=== PATIENT | male | born 1980 | race Hispanic/Latino ===

== ENCOUNTER 2017-05-21 14:13 | Observation (INO) | payer MEDICARE ==
[~2017-05-21] VITALS: Ht 182.9 cm; Wt 85.6 kg
[2017-05-21 15:34] LABS: BASOPHILS % (AUTO) 0.2 % (0.0-5.0); LYMPHOCYTES % (AUTO) 6.3 % (21.0-51.0); MEAN CORPUSCULAR HGB CONC 33.7 g/dL (32.0-36.0); MEAN CORPUSCULAR VOLUME 91.8 fL (79-99); MONOCYTES % (AUTO) 7.5 % (3.0-13.0); PLATELET COUNT (AUTO) 358 K/uL (130-400); RED BLOOD CELL COUNT(AUTO) 4.69 MIL/uL (4.50-6.20); RED CELL DISTRIBUTION WIDTH 13.4 % (11.0-15.5)
[2017-05-21 15:37] LABS: BILIRUBIN,URINE Negative (NEGATIVE); COLOR,URINE Dark Yellow (YELLOW); GLUCOSE, URINE (UA) Negative (NEGATIVE); KETONES,URINE Negative (NEGATIVE); LEUKOCYTE ESTERASE ,URINE Large (NEGATIVE); NITRATE,URINE Positive (NEGATIVE); OCCULT BLOOD,URINE Moderate (NEGATIVE); PROTEIN,URINE POS 1+ (NEGATIVE)
[2017-05-21 15:38] LABS: APPEARANCE,URINE CLOUDY (CLEAR)
[2017-05-21 15:45] LABS: AMPHET/METH SCREEN,URINE NEGATIVE (NEGATIVE); BARBITURATE SCREEN, URINE NEGATIVE (NEGATIVE); BENZODIAZEPINES SCREEN,URINE POSITIVE (NEGATIVE); CANNABINOID SCREEN,URINE POSITIVE (NEGATIVE); COCAINE SCREEN,URINE NEGATIVE (NEGATIVE); OPIATE SCREEN,URINE NEGATIVE (NEGATIVE); PHENCYCLIDINE SCREEN,URINE NEGATIVE (NEGATIVE)
[2017-05-21 15:48] LABS: CREATININE 0.9 mg/dL (0.5-1.5); POTASSIUM 3.7 mmol/L (3.5-5.1)
[2017-05-21 15:53] LABS: ALBUMIN 3.8 g/dL (3.5-5.0); BILIRUBIN,TOTAL 1.1 mg/dL (0.2-1.0); TOTAL PROTEIN, SERUM 8.2 g/dL (6.0-8.3)
[2017-05-21 16:48] LABS: BACTERIA,URINE Few /HPF (None Seen)
[2017-05-21 16:49] LABS: SQUAMOUS EPITHELIAL CELL,UR Rare /LPF (0-2); WBC,URINE 51-100 /HPF (0-1)
[2017-05-21] MEDS ORDERED: ACETAMINOPHEN 325 MG TAB ONE (17:05)
[2017-05-21] MEDS ORDERED: CEFTRIAXONE SODIUM 1 GM ONE (17:07)
[2017-05-22 07:14] LABS: BASOPHILS % (AUTO) 0.4 % (0.0-5.0); EOSINOPHILS % (AUTO) 0.1 % (0.0-8.0); HEMATOCRIT 37.9 % (42-54); LYMPHOCYTES % (AUTO) 7.9 % (21.0-51.0); MEAN CORPUSCULAR HEMOGLOBIN 31.8 pg (27.0-33.0); MEAN CORPUSCULAR HGB CONC 34.8 g/dL (32.0-36.0); MEAN CORPUSCULAR VOLUME 91.4 fL (79-99); MONOCYTES % (AUTO) 8.9 % (3.0-13.0); NEUTROPHILS % (AUTO) 82.7 % (40.0-77.0); PLATELET COUNT (AUTO) 329 K/uL (130-400); RED BLOOD CELL COUNT(AUTO) 4.15 MIL/uL (4.50-6.20); RED CELL DISTRIBUTION WIDTH 13.7 % (11.0-15.5); WHITE BLOOD COUNT (AUTO) 12.6 K/uL (4.8-10.8)
[2017-05-22 07:26] LABS: CREATININE 0.8 mg/dL (0.5-1.5); POTASSIUM 3.6 mmol/L (3.5-5.1)
[2017-05-22] MEDS ORDERED: ALPR2TAB7 PO (07:47)
[2017-05-22] MEDS ORDERED: AMIT25TA9 PO (07:49)
[2017-05-22] MEDS ORDERED: LISI-613 PO (07:51)
[2017-05-22] MEDS ORDERED: OXYB15TA PO (07:53)
[2017-05-22] MEDS ORDERED: CEFTRIAXONE SODIUM 1 GM IVP SCH (09:00)
[2017-05-22] MEDS: SODIUM CHLORIDE 0.9% 1000ML 1,000 ML IV SCH ×2 (09:15→18:11)
[2017-05-22] MEDS ORDERED: MAG HYDROX/AL HYDROX/SIMETH ES 30 ML SUSP UDCUP ONE (11:56)
[2017-05-22 12:50] VITALS: BP 106/68
[2017-05-22 16:00] VITALS: BP 130/52
[2017-05-22] MEDS: CEFTRIAXONE SODIUM 1 GM IVP SCH (18:11)
[2017-05-22 20:00] VITALS: BP 116/75
[2017-05-22] MEDS ORDERED: MAG HYDROX/AL HYDROX/SIMETH ES 30 ML SUSP UDCUP PO PRN (20:00)
[2017-05-22] MEDS: OXYBUTYNIN 5 MG TAB.SR.24H PO SCH (20:35)
[2017-05-22] MEDS ORDERED: ALPRAZOLAM 1 MG TAB PO SCH (21:00)
[2017-05-22] MEDS ORDERED: AMITRIPTYLINE HCL 25 MG TABLET PO SCH (21:00)
[2017-05-22 23:53] VITALS: BP 100/58
[2017-05-23 04:00] VITALS: BP 111/75
[2017-05-23 04:14] LABS: CREATININE 0.9 mg/dL (0.5-1.5)
[2017-05-23 04:20] LABS: HEMATOCRIT 36.3 % (42-54); MEAN CORPUSCULAR HEMOGLOBIN 31.6 pg (27.0-33.0); MEAN CORPUSCULAR HGB CONC 34.4 g/dL (32.0-36.0); MEAN CORPUSCULAR VOLUME 91.9 fL (79-99); PLATELET COUNT (AUTO) 288 K/uL (130-400); RED BLOOD CELL COUNT(AUTO) 3.95 MIL/uL (4.50-6.20); RED CELL DISTRIBUTION WIDTH 13.7 % (11.0-15.5); WHITE BLOOD COUNT (AUTO) 6.6 K/uL (4.8-10.8)
[2017-05-23 04:40] LABS: BAND NEUTROPHILS % (MANUAL) 7 % (0-2); LYMPHOCYTES % (MANUAL) 20 % (22-44); MAN.DIFF COMMENT-IMPRESSION MANUAL DIFFERENTIAL; MONOCYTES % (MANUAL) 4 % (2-9); PLATELET MORPHOLOGY COMMENT ADEQUATE; SEGMENTED NEUTROPHILS % 69 % (40-70)
[2017-05-23] MEDS: SODIUM CHLORIDE 0.9% 1000ML 1,000 ML IV SCH (05:24)
[2017-05-23 08:00] VITALS: BP 101/59
[2017-05-23] MEDS ORDERED: LISINOPRIL 20 MG TABLET PO SCH (09:00)
[2017-05-23] MEDS ORDERED: CEPH500B PO (09:35)
[2017-05-23] MEDS: OXYBUTYNIN 5 MG TAB.SR.24H PO SCH (10:14)
[2017-05-23] MEDS: CEFTRIAXONE SODIUM 1 GM IVP SCH (10:15)
[2017-05-23 11:57] VITALS: BP 123/74
== END 2017-05-23 11:45 | disposition home or self-care (01) ==
LOC: EDH 14:13 → EDHIP 17:20 → 3BH 05-22 12:31
PROVIDERS: ADMIT Internal Medicine Nephrology; ATTEND Internal Medicine Nephrology
DX: E11.69 Type 2 diabetes mellitus with other specified complication (principal); N12 Tubulo-interstitial nephritis, not specified as acute or chronic; N31.9 Neuromuscular dysfunction of bladder, unspecified; G82.20 Paraplegia, unspecified; I10 Essential (primary) hypertension; N13.30 Unspecified hydronephrosis; F41.9 Anxiety disorder, unspecified; Z91.19 Patient's noncompliance with other medical treatment and regimen; Z82.49 Family history of ischemic heart disease and other diseases of the circulatory system
CPT/HCPCS: 36415 ×3; 74176; 76770; 80048 ×2; 80053; 80305; 81001; 83605; 85025 ×3; 87040; 87088; 87186; 87804 ×2; 96361 ×2; 96374; 96376; 99285; A4218; G0378 ×42; J0696 ×3; J7030

== ENCOUNTER 2017-05-24 08:10 | Emergency (ER) | payer MEDICARE ==
[~2017-05-24 08:10] MED LIST: ALPR2TAB7 PO; AMIT25TA9 PO; CEPH500B PO; LISI-613 PO; OXYB15TA PO
[2017-05-24] MEDS ORDERED: KETOROLAC TROMETHAMINE 30MG/ML ONE (08:54)
[2017-05-24 09:12] LABS: BASOPHILS % (AUTO) 0.3 % (0.0-5.0); EOSINOPHILS % (AUTO) 1.9 % (0.0-8.0); HEMATOCRIT 39.8 % (42-54); LYMPHOCYTES % (AUTO) 10.9 % (21.0-51.0); MEAN CORPUSCULAR HEMOGLOBIN 31.2 pg (27.0-33.0); MEAN CORPUSCULAR HGB CONC 34.6 g/dL (32.0-36.0); MEAN CORPUSCULAR VOLUME 90.3 fL (79-99); MONOCYTES % (AUTO) 9.6 % (3.0-13.0); NEUTROPHILS % (AUTO) 77.3 % (40.0-77.0); NUCLEATED RED BLOOD CELLS 0.1 % (0.0-0.19); PLATELET COUNT (AUTO) 296 K/uL (130-400); WHITE BLOOD COUNT (AUTO) 9.5 K/uL (4.8-10.8)
[2017-05-24] MEDS ORDERED: ONDANSETRON ODT 4 MG TAB ONE (09:15)
[2017-05-24 09:19] LABS: CREATININE 0.7 mg/dL (0.5-1.5); POTASSIUM 3.5 mmol/L (3.5-5.1)
[2017-05-24 09:24] LABS: ALBUMIN 2.7 g/dL (3.5-5.0); BILIRUBIN,TOTAL 0.4 mg/dL (0.2-1.0)
[2017-05-24 09:25] LABS: APPEARANCE,URINE Cloudy (CLEAR); BILIRUBIN,URINE Negative (NEGATIVE); COLOR,URINE Yellow (YELLOW); GLUCOSE, URINE (UA) Negative (NEGATIVE); KETONES,URINE Negative (NEGATIVE); LEUKOCYTE ESTERASE ,URINE Large (NEGATIVE); NITRATE,URINE Negative (NEGATIVE); OCCULT BLOOD,URINE Small (NEGATIVE); PH,URINE 6.5 (5.0-8.0); PROTEIN,URINE Negative (NEGATIVE); UROBILINOGEN,URINE 0.2 mg/dL (0.2-1.0)
[2017-05-24 09:59] LABS: RBC,URINE 0-1 /HPF (0-1); WBC,URINE TNTC /HPF (0-1)
[2017-05-24 10:00] LABS: BACTERIA,URINE Few /HPF (None Seen); SQUAMOUS EPITHELIAL CELL,UR Few /LPF (0-2)
[2017-05-24] MEDS ORDERED: LEVOFLOXACIN 500 MG TABLET ONE (10:39)
== END 2017-05-24 11:18 | disposition home or self-care (01) ==
LOC: EDH 08:10
DX: N10 Acute pyelonephritis (principal); E11.9 Type 2 diabetes mellitus without complications; I10 Essential (primary) hypertension
CPT/HCPCS: 36415; 80053; 81001; 82150; 83690; 85025; 87088; 87186; 96374; 99284; J1885

== ENCOUNTER 2022-03-23 11:27 | Emergency (ER) | payer MEDICARE ==
[~2022-03-23 11:27] MED LIST changes: -LISI-613 PO; +LISI20TA24 PO; -OXYB15TA PO; +OXYB15TA19 PO
[2022-03-23] MEDS ORDERED: LACTATED RINGERS 1000ML 1,000 ML IV ONE (12:00)
[2022-03-23 12:22] LABS: BASOPHILS % (AUTO) 0.3 % (0.0-5.0); EOSINOPHILS % (AUTO) 0.5 % (0.0-8.0); HEMATOCRIT 43.7 % (42-54); LYMPHOCYTES % (AUTO) 18.1 % (21.0-51.0); MEAN CORPUSCULAR HEMOGLOBIN 26.8 pg (27.0-33.0); MEAN CORPUSCULAR HGB CONC 31.6 g/dL (32.0-36.0); MEAN CORPUSCULAR VOLUME 84.9 fL (79-99); MONOCYTES % (AUTO) 5.6 % (3.0-13.0); NEUTROPHILS % (AUTO) 74.7 % (40.0-77.0); PLATELET COUNT (AUTO) 407 K/uL (130-400); RED BLOOD CELL COUNT(AUTO) 5.15 MIL/uL (4.50-6.20); RED CELL DISTRIBUTION WIDTH 14.6 % (11.0-15.5); WHITE BLOOD COUNT (AUTO) 7.9 K/uL (4.8-10.8)
[2022-03-23 12:33] LABS: CREATININE 0.8 mg/dL (0.5-1.5); POTASSIUM 3.7 mmol/L (3.5-5.1)
[2022-03-23 12:37] LABS: ALBUMIN 3.3 g/dL (3.5-5.0); TOTAL PROTEIN, SERUM 8.1 g/dL (6.0-8.3)
[2022-03-23 13:09] LABS: APPEARANCE,URINE CLOUDY (CLEAR); BILIRUBIN,URINE NEGATIVE (NEGATIVE); COLOR,URINE LIGHT-YELLOW (YELLOW); GLUCOSE, URINE (UA) NEGATIVE (NEGATIVE); KETONES,URINE NEGATIVE (NEGATIVE); LEUKOCYTE ESTERASE ,URINE 500 Leu/uL (NEGATIVE); NITRATE,URINE NEGATIVE (NEGATIVE); PH,URINE 6.5 (5.0-8.0); PROTEIN,URINE NEGATIVE (NEGATIVE); UROBILINOGEN,URINE 0.2 mg/dL (0.2-1.0)
[2022-03-23 13:15] LABS: BACTERIA,URINE FEW /HPF (None Seen); MUCUS,URINE RARE LPF (None Seen); OTHER CASTS, URINE 2 /LPF (None Seen); SQUAMOUS EPITHELIAL CELL,UR RARE /HPF (0-2); WBC,URINE TNTC /HPF (0-1); YEAST,URINE BUDDING RARE /HPF (None Seen)
[2022-03-23] MEDS ORDERED: LORAZEPAM 2 MG/ML 1 ML VIAL IVP ONE (14:00)
[2022-03-23] MEDS ORDERED: CEFTRIAXONE 1G VIAL IVP ONE (16:30)
[2022-03-23] MEDS ORDERED: CEFU500T67 PO (16:59)
[2022-03-23] MEDS ORDERED: LORA-192 PO (16:59)
[2022-03-23 17:01] VITALS: BP 120/78
== END 2022-03-23 17:09 | disposition home or self-care (01) ==
LOC: EDH 11:27
DX: A09 Infectious gastroenteritis and colitis, unspecified (principal); E86.0 Dehydration; F41.9 Anxiety disorder, unspecified; N39.0 Urinary tract infection, site not specified; Z79.899 Other long term (current) drug therapy; Z88.1 Allergy status to other antibiotic agents
CPT/HCPCS: 99285; 96374; 96375; 80053; 85025; 87077; 87088; 87186; 81001; 36415; J7120; J0696; J2060

== ENCOUNTER 2022-11-17 02:34 | Emergency (ER) | payer OTHER, MEDICARE ==
[~2022-11-17] VITALS: Ht 182.9 cm; Wt 86.2 kg
[~2022-11-17 02:34] MED LIST changes: +CEFU500T67 PO; +LORA-192 PO
[2022-11-17] MEDS ORDERED: 0.9%NACL 1000ML 1,551 ML IV ONE (03:00)
[2022-11-17 03:19] LABS: BASOPHILS # (AUTO) 0.04 K/uL (0.00-0.20); BASOPHILS % (AUTO) 0.4 % (0.0-5.0); EOSINOPHILS # (AUTO) 0.13 K/uL (0.00-0.70); EOSINOPHILS % (AUTO) 1.2 % (0.0-8.0); HEMATOCRIT 45.7 % (42-54); IMMATURE GRANULOCYTE ABSOLUTE 0.06 K/uL (0-1); LYMPHOCYTES # (AUTO) 1.2 K/uL (1.0-4.8); LYMPHOCYTES % (AUTO) 10.4 % (21.0-51.0); MEAN CORPUSCULAR HEMOGLOBIN 28.6 pg (27.0-33.0); MEAN CORPUSCULAR HGB CONC 32.4 g/dL (32.0-36.0); MEAN CORPUSCULAR VOLUME 88.2 fL (79-99); MONOCYTES # (AUTO) 0.7 K/uL (0.1-1.0); NEUTROPHILS # (AUTO) 9.2 K/uL (1.8-7.7); NEUTROPHILS % (AUTO) 81.5 % (40.0-77.0); PLATELET COUNT (AUTO) 277 K/uL (130-400); RED BLOOD CELL COUNT(AUTO) 5.18 MIL/uL (4.50-6.20); RED CELL DISTRIBUTION WIDTH 13.4 % (11.0-15.5); WHITE BLOOD COUNT (AUTO) 11.2 K/uL (4.8-10.8)
[2022-11-17 03:20] LABS: BILIRUBIN,URINE NEGATIVE (NEGATIVE); COLOR,URINE YELLOW (YELLOW); GLUCOSE, URINE (UA) NEGATIVE (NEGATIVE); KETONES,URINE NEGATIVE (NEGATIVE); LEUKOCYTE ESTERASE ,URINE LARGE Leu/uL (NEGATIVE); NITRATE,URINE NEGATIVE (NEGATIVE); OCCULT BLOOD,URINE MODERATE (NEGATIVE); PH,URINE 7.5 (5.0-8.0); PROTEIN,URINE 30 mg/dL (NEGATIVE); UROBILINOGEN,URINE 0.2 mg/dL (0.2-1.0)
[2022-11-17] MEDS ORDERED: CEFTRIAXONE 1G VIAL ONE (03:23)
[2022-11-17 03:24] LABS: ADD UA MICROSCOPIC YES; APPEARANCE,URINE CLOUDY (CLEAR)
[2022-11-17 03:27] LABS: WBC,URINE 51-100 /HPF (0-1)
[2022-11-17 03:28] LABS: BACTERIA,URINE Many /HPF (None Seen)
[2022-11-17 03:29] LABS: SQUAMOUS EPITHELIAL CELL,UR Rare /HPF (0-2)
[2022-11-17] MEDS ORDERED: CEFTRIAXONE 1G VIAL IVPB ONE (03:30)
[2022-11-17 03:31] LABS: ALBUMIN 3.1 g/dL (3.5-5.0); BILIRUBIN,TOTAL 0.6 mg/dL (0.2-1.0); CREATININE 0.8 mg/dL (0.5-1.5); TOTAL PROTEIN, SERUM 7.9 g/dL (6.0-8.3)
[2022-11-17 03:33] LABS: POTASSIUM 2.8 mmol/L (3.5-5.1)
[2022-11-17] MEDS ORDERED: CEFU500T67 PO (04:44)
[2022-11-17] MEDS ORDERED: POTASSIUM BICARB/CIT AC 25 MEQ TABLET.EFF PO ONE (05:00)
[2022-11-17] MEDS ORDERED: POTASSIUM CHLORIDE 10MEQ/100ML 100 ML IV SCH (05:00)
[2022-11-17 05:17] VITALS: BP 115/77; PULSE 100; RESP 18; O2SAT 99
== END 2022-11-17 05:33 | disposition home or self-care (01) ==
LOC: EDH 02:34
DX: L89.152 Pressure ulcer of sacral region, stage 2 (principal); N39.0 Urinary tract infection, site not specified; E86.0 Dehydration; E87.6 Hypokalemia; I10 Essential (primary) hypertension; E78.00 Pure hypercholesterolemia, unspecified; Z79.899 Other long term (current) drug therapy; Z88.1 Allergy status to other antibiotic agents
CPT/HCPCS: 99283; 96374; 80053; 85025; 87040 ×2; 87077; 87088; 87186; 83605; 81001; 36415; J0696

== ENCOUNTER 2022-11-27 18:58 | Inpatient (IN) | payer OTHER, MEDICARE ==
[~2022-11-27] VITALS: Ht 182.9 cm; Wt 87.1 kg
[~2022-11-27 18:58] MED LIST changes: -CEPH500B PO
[2022-11-27] MEDS ORDERED: ACETAMINOPHEN 325 MG TAB ONE (19:30)
[2022-11-27] MEDS ORDERED: ACETAMINOPHEN 325 MG TAB PO ONE (19:30)
[2022-11-27 20:15] LABS: BASOPHILS # (AUTO) 0.03 K/uL (0.00-0.20); BASOPHILS % (AUTO) 0.3 % (0.0-5.0); EOSINOPHILS # (AUTO) 0.09 K/uL (0.00-0.70); EOSINOPHILS % (AUTO) 0.8 % (0.0-8.0); HEMATOCRIT 43.4 % (42-54); LYMPHOCYTES # (AUTO) 1.4 K/uL (1.0-4.8); LYMPHOCYTES % (AUTO) 11.3 % (21.0-51.0); MEAN CORPUSCULAR HEMOGLOBIN 28.5 pg (27.0-33.0); MEAN CORPUSCULAR HGB CONC 32.7 g/dL (32.0-36.0); MONOCYTES # (AUTO) 0.7 K/uL (0.1-1.0); NEUTROPHILS # (AUTO) 9.7 K/uL (1.8-7.7); NEUTROPHILS % (AUTO) 80.8 % (40.0-77.0); PLATELET COUNT (AUTO) 357 K/uL (130-400); RED BLOOD CELL COUNT(AUTO) 4.99 MIL/uL (4.50-6.20); RED CELL DISTRIBUTION WIDTH 13.3 % (11.0-15.5)
[2022-11-27] MEDS: 0.9%NACL 1000ML 1,000 ML IV SCH (20:15)
[2022-11-27 20:26] LABS: BILIRUBIN,URINE NEGATIVE (NEGATIVE); COLOR,URINE LIGHT-ORANGE (YELLOW); GLUCOSE, URINE (UA) NEGATIVE (NEGATIVE); KETONES,URINE NEGATIVE (NEGATIVE); LEUKOCYTE ESTERASE ,URINE 500 Leu/uL (NEGATIVE); NITRATE,URINE NEGATIVE (NEGATIVE); OCCULT BLOOD,URINE MODERATE (NEGATIVE); PH,URINE 7.5 (5.0-8.0); PROTEIN,URINE 30 mg/dL (NEGATIVE); UROBILINOGEN,URINE 0.2 mg/dL (0.2-1.0)
[2022-11-27 20:28] LABS: APPEARANCE,URINE CLOUDY (CLEAR)
[2022-11-27 20:29] LABS: ADD UA MICROSCOPIC YES
[2022-11-27 20:34] LABS: CREATININE 0.8 mg/dL (0.5-1.5); POTASSIUM 3.3 mmol/L (3.5-5.1)
[2022-11-27 20:35] LABS: BACTERIA,URINE FEW /HPF (None Seen); MUCUS,URINE RARE LPF (None Seen); SQUAMOUS EPITHELIAL CELL,UR RARE /HPF (0-2); WBC CLUMP MANY /HPF (0-1); WBC,URINE TNTC /HPF (0-1)
[2022-11-27 20:39] LABS: INFLUENZA TYPE A Negative For Type A (NEGATIVE); INFLUENZA TYPE B Negative For Type B (NEGATIVE); SARS-CoV-2, RNA, NAAT NEGATIVE SARS CoV-2 (NEGATIVE)
[2022-11-27 20:43] LABS: ALBUMIN 2.9 g/dL (3.5-5.0); BILIRUBIN,TOTAL 0.5 mg/dL (0.2-1.0); MAGNESIUM 1.9 mg/dL (1.80-2.40); TOTAL PROTEIN, SERUM 7.9 g/dL (6.0-8.3)
[2022-11-27 21:22] VITALS: TEMP 99.2
[2022-11-27] MEDS ORDERED: ZOSYN 3.375GM +NS 50ML IVPB ONE (22:00)
[2022-11-27] MEDS ORDERED: MORPHINE 4 MG SYG IVP ONE (22:30)
[2022-11-27] MEDS ORDERED: ONDANSETRON 4MG INJ IVP PRN (22:30)
[2022-11-28] VITALS (9 sets, daily range): BP systolic 98–135; BP diastolic 58–78; PULSE 74–98; RESP 16–18; O2SAT 97–98
[2022-11-28] MEDS ORDERED: POTASSIUM BICARB/CIT AC 25 MEQ TABLET.EFF PO ONE (00:30)
[2022-11-28] MEDS ORDERED: COMPOUND IV MISC 1 EACH IVSOLN MISC PRN (08:00)
[2022-11-28] MEDS: MEROPENEM 1 GM in 0.9%NACL 100ML 100 ML IV SCH ×3 (08:30→21:16)
[2022-11-28] MEDS ORDERED: ENOXAPARIN SODIUM 60 MG/0.6 ML SQ ONE (09:00)
[2022-11-28] MEDS ORDERED: ENOXAPARIN SODIUM 40 MG/0.4 ML SYRINGE SQ ONE (10:30)
[2022-11-28] MEDS ORDERED: HONEY 1 APPL/ML TUBE TP SCH (17:00)
[2022-11-28] MEDS: 0.9%NACL 1000ML 1,000 ML IV SCH (21:17)
[2022-11-28] MEDS: MORPHINE 2 MG SYG IVP PRN (21:24)
[2022-11-28 22:44] LABS: BASOPHILS # (AUTO) 0.04 K/uL (0.00-0.20); BASOPHILS % (AUTO) 0.5 % (0.0-5.0); EOSINOPHILS # (AUTO) 0.24 K/uL (0.00-0.70); EOSINOPHILS % (AUTO) 2.9 % (0.0-8.0); HEMATOCRIT 39.7 % (42-54); IMMATURE GRANULOCYTE ABSOLUTE 0.04 K/uL (0-1); LYMPHOCYTES # (AUTO) 1.7 K/uL (1.0-4.8); LYMPHOCYTES % (AUTO) 20.5 % (21.0-51.0); MEAN CORPUSCULAR HEMOGLOBIN 28.5 pg (27.0-33.0); MEAN CORPUSCULAR HGB CONC 31.5 g/dL (32.0-36.0); MEAN CORPUSCULAR VOLUME 90.4 fL (79-99); MONOCYTES # (AUTO) 0.7 K/uL (0.1-1.0); MONOCYTES % (AUTO) 8.7 % (3.0-13.0); NEUTROPHILS # (AUTO) 5.6 K/uL (1.8-7.7); NEUTROPHILS % (AUTO) 66.9 % (40.0-77.0); PLATELET COUNT (AUTO) 309 K/uL (130-400); RED BLOOD CELL COUNT(AUTO) 4.39 MIL/uL (4.50-6.20); RED CELL DISTRIBUTION WIDTH 13.1 % (11.0-15.5); WHITE BLOOD COUNT (AUTO) 8.4 K/uL (4.8-10.8)
[2022-11-28 22:59] LABS: MAGNESIUM 1.8 mg/dL (1.80-2.40); PHOSPHORUS 3.6 mg/dL (2.5-4.9); POTASSIUM 3.3 mmol/L (3.5-5.1)
[2022-11-29] VITALS (7 sets, daily range): BP systolic 113–141; BP diastolic 70–79; PULSE 59–78; RESP 15–18; O2SAT 97–99
[2022-11-29] MEDS: MEROPENEM 1 GM in 0.9%NACL 100ML 100 ML IV SCH ×3 (04:14→19:50)
[2022-11-29 05:15] LABS: HEMATOCRIT 38.4 % (42-54); MEAN CORPUSCULAR HEMOGLOBIN 28.7 pg (27.0-33.0); MEAN CORPUSCULAR VOLUME 89.5 fL (79-99); RED BLOOD CELL COUNT(AUTO) 4.29 MIL/uL (4.50-6.20); RED CELL DISTRIBUTION WIDTH 13.2 % (11.0-15.5); WHITE BLOOD COUNT (AUTO) 8.7 K/uL (4.8-10.8)
[2022-11-29 05:19] LABS: CREATININE 0.9 mg/dL (0.5-1.5); MAGNESIUM 1.8 mg/dL (1.80-2.40); POTASSIUM 3.4 mmol/L (3.5-5.1)
[2022-11-29] MEDS ORDERED: MAGNESIUM 4GM PREMIX 100ML 100 ML IV ONE (10:00)
[2022-11-29] MEDS: HONEY 1 APPL/ML TUBE TP SCH (12:31)
[2022-11-29] MEDS: ACETAMINOPHEN 325 MG TAB PO PRN (14:53)
[2022-11-29] MEDS: ALPRAZOLAM 0.5 MG TABLET PO SCH (19:50)
[2022-11-29] MEDS ORDERED: POTASSIUM CHLORIDE 10% ELIXIR 20 MEQ/15 ML UDCUP PO PRN (21:30)
[2022-11-29] MEDS ORDERED: POTASSIUM CHLORIDE 20MEQ/100ML 100 ML IV PRN (21:30)
[2022-11-29] MEDS ORDERED: MAGNESIUM 2GM PREMIX 50ML 50 ML IV PRN (21:30)
[2022-11-29] MEDS: KCL 20 MEQ ERTAB PO PRN (23:17)
[2022-11-30] MEDS: MORPHINE 2 MG SYG IVP PRN ×2 (00:59→21:18)
[2022-11-30] MEDS: KCL 20 MEQ ERTAB PO PRN (00:59)
[2022-11-30 04:00] VITALS: BP 110/70; PULSE 76; RESP 15
[2022-11-30] MEDS: MEROPENEM 1 GM in 0.9%NACL 100ML 100 ML IV SCH ×3 (04:43→21:00)
[2022-11-30 06:31] LABS: MAGNESIUM 2.3 mg/dL (1.80-2.40); POTASSIUM 3.8 mmol/L (3.5-5.1)
[2022-11-30 08:00] VITALS: BP 129/82; PULSE 76; RESP 18; O2SAT 99
[2022-11-30] MEDS: ALPRAZOLAM 0.5 MG TABLET PO SCH ×2 (09:40→21:10)
[2022-11-30] MEDS: HONEY 1 APPL/ML TUBE TP SCH (09:41)
[2022-11-30 12:00] VITALS: BP 122/76; PULSE 74; RESP 20
[2022-11-30 16:00] VITALS: BP 131/82; PULSE 69; RESP 19
[2022-11-30] MEDS: ACETAMINOPHEN 325 MG TAB PO PRN (16:36)
[2022-11-30 16:56] LABS: INR 0.96 (0.85-1.15); PROTHROMBIN TIME 11.2 SEC (9.6-11.6)
[2022-11-30 16:57] LABS: PARTIAL THROMBOPLASTIN TIME 27.2 SEC (26.3-35.5)
[2022-11-30 20:00] VITALS: BP 138/86; PULSE 66; RESP 19
[2022-11-30 20:18] VITALS: O2SAT 97
[2022-12-01] VITALS (8 sets, daily range): BP systolic 98–128; BP diastolic 68–87; PULSE 69–86; RESP 17–19; O2SAT 97
[2022-12-01] MEDS: MEROPENEM 1 GM in 0.9%NACL 100ML 100 ML IV SCH ×3 (04:06→20:45)
[2022-12-01] MEDS: HONEY 1 APPL/ML TUBE TP SCH (09:20)
[2022-12-01] MEDS: ALPRAZOLAM 0.5 MG TABLET PO SCH ×2 (09:20→20:44)
[2022-12-01] MEDS: MORPHINE 2 MG SYG IVP PRN ×2 (13:04→21:52)
[2022-12-02] VITALS: BP 109/61; PULSE 68; RESP 18
[2022-12-02 04:00] VITALS: BP 123/85; PULSE 81; RESP 21
[2022-12-02] MEDS: MEROPENEM 1 GM in 0.9%NACL 100ML 100 ML IV SCH ×2 (04:37→13:03)
[2022-12-02 05:08] LABS: HEMATOCRIT 42.4 % (42-54); MEAN CORPUSCULAR HEMOGLOBIN 28.2 pg (27.0-33.0); MEAN CORPUSCULAR HGB CONC 32.1 g/dL (32.0-36.0); RED BLOOD CELL COUNT(AUTO) 4.82 MIL/uL (4.50-6.20); RED CELL DISTRIBUTION WIDTH 12.9 % (11.0-15.5); WHITE BLOOD COUNT (AUTO) 6.2 K/uL (4.8-10.8)
[2022-12-02 05:24] LABS: CREATININE 0.7 mg/dL (0.5-1.5); PHOSPHORUS 4.4 mg/dL (2.5-4.9); POTASSIUM 3.7 mmol/L (3.5-5.1)
[2022-12-02] MEDS: KCL 20 MEQ ERTAB PO PRN ×2 (06:08→13:04)
[2022-12-02 08:00] VITALS: BP 127/78; PULSE 88; RESP 18; O2SAT 97
[2022-12-02] MEDS: ALPRAZOLAM 0.5 MG TABLET PO SCH (10:14)
[2022-12-02] MEDS: HONEY 1 APPL/ML TUBE TP SCH (10:14)
[2022-12-02 11:34] VITALS: BP 126/89; PULSE 63; RESP 18
[2022-12-02 16:00] VITALS: BP 120/78; PULSE 65; RESP 19
== END 2022-12-02 19:50 | DRG 871 ==
LOC: EDH 18:58 → EDHIP 22:24 → 3CH 23:05
PROVIDERS: ADMIT Internal Medicine Infectious Disease; ATTEND Internal Medicine Infectious Disease
PROC: 02HV33Z Insertion of Infusion Device into Superior Vena Cava, Percutaneous Approach (ICD-10-PCS; principal; 2022-12-01)
DX: A41.51 Sepsis due to Escherichia coli [E. coli] (principal); G82.50 Quadriplegia, unspecified; L89.153 Pressure ulcer of sacral region, stage 3; N39.0 Urinary tract infection, site not specified; Z16.12 Extended spectrum beta lactamase (ESBL) resistance; Z16.24 Resistance to multiple antibiotics; Z20.822 Contact with and (suspected) exposure to COVID-19; E87.6 Hypokalemia; N31.9 Neuromuscular dysfunction of bladder, unspecified; E78.5 Hyperlipidemia, unspecified; I10 Essential (primary) hypertension; Z87.440 Personal history of urinary (tract) infections
CPT/HCPCS: 36415; 71045; 80048; 80053; 81001; 82948; 83605; 83735; 84100; 84132; 84484; 85025; 85027; 85610; 85730; 87040; 87077; 87088; 87186; 87635; 87804; 93005; 97039; C1894; C9803; G0378; J1650; J2185; J2270; J2543; J3475

== ENCOUNTER 2023-08-12 18:18 | Emergency (ER) | payer OTHER, MEDICARE ==
[~2023-08-12] VITALS: Ht 182.9 cm; Wt 90.7 kg
[~2023-08-12 18:18] MED LIST changes: +ALPR1TAB7 PO; -ALPR2TAB7 PO; -CEFU500T67 PO; -LORA-192 PO
[2023-08-12 19:01] LABS: BASOPHILS # (AUTO) 0.02 K/uL (0.00-0.20); BASOPHILS % (AUTO) 0.2 % (0.0-5.0); EOSINOPHILS # (AUTO) 0.05 K/uL (0.00-0.70); EOSINOPHILS % (AUTO) 0.6 % (0.0-8.0); HEMATOCRIT 44.9 % (42-54); IMMATURE GRANULOCYTE ABSOLUTE 0.02 K/uL (0-1); LYMPHOCYTES # (AUTO) 1.5 K/uL (1.0-4.8); LYMPHOCYTES % (AUTO) 17.9 % (21.0-51.0); MEAN CORPUSCULAR HEMOGLOBIN 27.3 pg (27.0-33.0); MEAN CORPUSCULAR HGB CONC 32.5 g/dL (32.0-36.0); MEAN CORPUSCULAR VOLUME 84.1 fL (79-99); MONOCYTES # (AUTO) 0.7 K/uL (0.1-1.0); MONOCYTES % (AUTO) 8.6 % (3.0-13.0); NEUTROPHILS # (AUTO) 6.2 K/uL (1.8-7.7); NEUTROPHILS % (AUTO) 72.5 % (40.0-77.0); PLATELET COUNT (AUTO) 317 K/uL (130-400); RED BLOOD CELL COUNT(AUTO) 5.34 MIL/uL (4.50-6.20); WHITE BLOOD COUNT (AUTO) 8.5 K/uL (4.8-10.8)
[2023-08-12 19:15] LABS: ALBUMIN 3.2 g/dL (3.5-5.0); BILIRUBIN,TOTAL 0.5 mg/dL (0.2-1.0); CREATININE 0.8 mg/dL (0.5-1.3); TOTAL PROTEIN, SERUM 7.9 g/dL (6.0-8.3)
[2023-08-12] MEDS: 0.9%NACL 1000ML 1,000 ML IV STA (19:47)
[2023-08-12] MEDS: ONDANSETRON 4MG INJ IVP STA (19:49)
[2023-08-12] MEDS ORDERED: HYDR-3422 PO (21:01)
[2023-08-12] MEDS: POTASSIUM BICARB/CIT AC 25 MEQ TABLET.EFF PO STA (21:12)
[2023-08-12 22:58] VITALS: BP 124/88; PULSE 90; RESP 18; O2SAT 98
== END 2023-08-12 23:36 | disposition home or self-care (01) ==
LOC: EDH 18:18
DX: K52.9 Noninfective gastroenteritis and colitis, unspecified (principal); R11.2 Nausea with vomiting, unspecified; I10 Essential (primary) hypertension
CPT/HCPCS: 99283; 96374; 96361; 80053; 85025; 87070; 87077 ×4; 87186 ×4; 83605; 36415; J7030; J2405

== ENCOUNTER 2023-12-13 19:29 | Emergency (ER) | payer OTHER, MEDICARE ==
[~2023-12-13 19:29] MED LIST changes: +HYDR-3422 PO
[2023-12-13 19:50] LABS: BASOPHILS # (AUTO) 0.03 K/uL (0.00-0.20); BASOPHILS % (AUTO) 0.2 % (0.0-5.0); EOSINOPHILS # (AUTO) 0.05 K/uL (0.00-0.70); EOSINOPHILS % (AUTO) 0.3 % (0.0-8.0); HEMATOCRIT 44.2 % (42-54); IMMATURE GRANULOCYTE ABSOLUTE 0.08 K/uL (0-1); LYMPHOCYTES # (AUTO) 1.4 K/uL (1.0-4.8); LYMPHOCYTES % (AUTO) 9.7 % (21.0-51.0); MEAN CORPUSCULAR HEMOGLOBIN 28.1 pg (27.0-33.0); MEAN CORPUSCULAR HGB CONC 32.4 g/dL (32.0-36.0); MEAN CORPUSCULAR VOLUME 86.8 fL (79-99); MONOCYTES # (AUTO) 1.1 K/uL (0.1-1.0); MONOCYTES % (AUTO) 7.4 % (3.0-13.0); NEUTROPHILS # (AUTO) 11.8 K/uL (1.8-7.7); NEUTROPHILS % (AUTO) 81.8 % (40.0-77.0); PLATELET COUNT (AUTO) 300 K/uL (130-400); RED BLOOD CELL COUNT(AUTO) 5.09 MIL/uL (4.50-6.20); RED CELL DISTRIBUTION WIDTH 14.1 % (11.0-15.5); WHITE BLOOD COUNT (AUTO) 14.5 K/uL (4.8-10.8)
[2023-12-13 19:56] LABS: CREATININE 0.9 mg/dL (0.5-1.3); POTASSIUM 3.4 mmol/L (3.5-5.1)
[2023-12-13] MEDS: 0.9%NACL 1000ML 1,000 ML IV ONE (21:08)
[2023-12-13] MEDS: ketOROlac 15MG/ML VIAL (15MG/ML) IV ONE (21:36)
[2023-12-13 22:07] LABS: APPEARANCE,URINE TURBID (CLEAR); BILIRUBIN,URINE NEGATIVE (NEGATIVE); COLOR,URINE LIGHT-ORANGE (YELLOW); GLUCOSE, URINE (UA) NEGATIVE (NEGATIVE); KETONES,URINE NEGATIVE (NEGATIVE); LEUKOCYTE ESTERASE ,URINE 500 Leu/uL (NEGATIVE); NITRATE,URINE NEGATIVE (NEGATIVE); OCCULT BLOOD,URINE MODERATE (NEGATIVE); PROTEIN,URINE 300 mg/dL (NEGATIVE); UROBILINOGEN,URINE 0.2 mg/dL (0.2-1.0)
[2023-12-13 22:11] LABS: BACTERIA,URINE RARE /HPF (None Seen); NON-SQUAMOUS EPITHELIAL CELL 1 /HPF (0-2); OTHER CASTS, URINE 3 /LPF (None Seen); RBC,URINE 51-100 /HPF (0-1); UNCLASSIFIED CRYSTAL 6 /HPF (None Seen); WBC CLUMP FEW /HPF (0-1); WBC,URINE 51-100 /HPF (0-1); YEAST,URINE BUDDING FEW /HPF (None Seen)
[2023-12-13] MEDS ORDERED: LEVO750T68 PO (22:22)
[2023-12-13] MEDS: levoFLOXacin 500 MG/D5W 100 ML 100 ML IV SCH (22:47)
[2023-12-14 01:30] VITALS: BP 137/79; PULSE 84; RESP 18; TEMP 98.2; O2SAT 99
== END 2023-12-14 01:39 | disposition home or self-care (01) ==
LOC: EDH 19:29
DX: N39.0 Urinary tract infection, site not specified (principal); N32.0 Bladder-neck obstruction; G82.20 Paraplegia, unspecified; I10 Essential (primary) hypertension; Z79.899 Other long term (current) drug therapy; Z88.1 Allergy status to other antibiotic agents; Z98.890 Other specified postprocedural states
CPT/HCPCS: 99284; 96365; 96361; 96366; 96375; 80048; 85025; 87086 ×2; 87186; 81001; 36415; 51702; J1956; J7030; J1885

== ENCOUNTER 2023-12-16 14:07 | Emergency (ER) | payer OTHER, MEDICARE ==
[~2023-12-16] VITALS: Ht 182.9 cm; Wt 93.0 kg
[~2023-12-16 14:07] MED LIST changes: +LEVO750T68 PO
[2023-12-16 14:45] LABS: BILIRUBIN,URINE NEGATIVE (NEGATIVE); COLOR,URINE LIGHT-YELLOW (YELLOW); GLUCOSE, URINE (UA) NEGATIVE (NEGATIVE); KETONES,URINE NEGATIVE (NEGATIVE); LEUKOCYTE ESTERASE ,URINE 500 Leu/uL (NEGATIVE); NITRATE,URINE NEGATIVE (NEGATIVE); OCCULT BLOOD,URINE LARGE (NEGATIVE); PH,URINE 6.5 (5.0-8.0); PROTEIN,URINE 20 mg/dL (NEGATIVE); UROBILINOGEN,URINE 0.2 mg/dL (0.2-1.0)
[2023-12-16 14:46] LABS: ADD UA MICROSCOPIC YES; APPEARANCE,URINE HAZY (CLEAR)
[2023-12-16 14:50] LABS: BACTERIA,URINE FEW /HPF (None Seen); MUCUS,URINE RARE LPF (None Seen); RBC,URINE TNTC /HPF (0-1); SQUAMOUS EPITHELIAL CELL,UR RARE /HPF (0-2); WBC,URINE TNTC /HPF (0-1)
[2023-12-16 14:51] LABS: BASOPHILS # (AUTO) 0.01 K/uL (0.00-0.20); BASOPHILS % (AUTO) 0.2 % (0.0-5.0); EOSINOPHILS # (AUTO) 0.33 K/uL (0.00-0.70); EOSINOPHILS % (AUTO) 5.1 % (0.0-8.0); HEMATOCRIT 40.4 % (42-54); IMMATURE GRANULOCYTE ABSOLUTE 0.02 K/uL (0-1); LYMPHOCYTES # (AUTO) 1.5 K/uL (1.0-4.8); LYMPHOCYTES % (AUTO) 23.8 % (21.0-51.0); MEAN CORPUSCULAR HEMOGLOBIN 28.3 pg (27.0-33.0); MEAN CORPUSCULAR HGB CONC 32.4 g/dL (32.0-36.0); MEAN CORPUSCULAR VOLUME 87.3 fL (79-99); MONOCYTES # (AUTO) 0.5 K/uL (0.1-1.0); MONOCYTES % (AUTO) 7.9 % (3.0-13.0); NEUTROPHILS % (AUTO) 62.7 % (40.0-77.0); PLATELET COUNT (AUTO) 350 K/uL (130-400); RED BLOOD CELL COUNT(AUTO) 4.63 MIL/uL (4.50-6.20); RED CELL DISTRIBUTION WIDTH 13.8 % (11.0-15.5); WHITE BLOOD COUNT (AUTO) 6.4 K/uL (4.8-10.8)
[2023-12-16 15:09] LABS: ALBUMIN 2.5 g/dL (3.5-5.0); BILIRUBIN,TOTAL 0.3 mg/dL (0.2-1.0); CREATININE 0.9 mg/dL (0.5-1.3); TOTAL PROTEIN, SERUM 7.3 g/dL (6.0-8.3)
[2023-12-16] MEDS: 0.9%NACL 1000ML 1,000 ML IV SCH (15:59)
[2023-12-16] MEDS: PoTASSium BIcarbonate/CIT AC 25 MEQ TABLET.EFF PO ONE (16:15)
[2023-12-16 22:49] VITALS: BP 136/76; PULSE 75; RESP 18; TEMP 98.3; O2SAT 98
== END 2023-12-16 22:50 | disposition home or self-care (01) ==
LOC: EDH 14:07
DX: N39.0 Urinary tract infection, site not specified (principal); E87.6 Hypokalemia; F41.9 Anxiety disorder, unspecified; I10 Essential (primary) hypertension; Z79.899 Other long term (current) drug therapy; Z88.1 Allergy status to other antibiotic agents
CPT/HCPCS: 36415; 80053; 81001; 85025

== ENCOUNTER 2024-01-10 09:44 | Emergency (ER) | payer OTHER, MEDICARE ==
[~2024-01-10] VITALS: Ht 182.9 cm; Wt 77.1 kg
[2024-01-10] MEDS: acetaMINOPHEN 500 MG TABLET PO ONE (10:28)
[2024-01-10 11:27] VITALS: TEMP 98.4
[2024-01-10 12:12] LABS: APPEARANCE,URINE CLOUDY (CLEAR); BILIRUBIN,URINE NEGATIVE (NEGATIVE); COLOR,URINE LIGHT-YELLOW (YELLOW); GLUCOSE, URINE (UA) NEGATIVE (NEGATIVE); KETONES,URINE NEGATIVE (NEGATIVE); LEUKOCYTE ESTERASE ,URINE 500 Leu/uL (NEGATIVE); NITRATE,URINE 1+ (NEGATIVE); OCCULT BLOOD,URINE SMALL (NEGATIVE); PH,URINE 6.5 (5.0-8.0); PROTEIN,URINE NEGATIVE (NEGATIVE); UROBILINOGEN,URINE 0.2 mg/dL (0.2-1.0)
[2024-01-10 12:25] VITALS: BP 136/81; PULSE 70; RESP 18; TEMP 97.6; O2SAT 100
[2024-01-10 12:29] LABS: BACTERIA,URINE RARE /HPF (None Seen); SQUAMOUS EPITHELIAL CELL,UR RARE /HPF (0-2); WBC CLUMP MOD /HPF (0-1); WBC,URINE TNTC /HPF (0-1)
[2024-01-10] MEDS ORDERED: FOSF3PAC4 PO (12:38)
== END 2024-01-10 14:22 | disposition home or self-care (01) ==
LOC: EDH 09:44
DX: T83.098A Other mechanical complication of other urinary catheter, initial encounter (principal); N39.0 Urinary tract infection, site not specified; F32.A Depression, unspecified; G82.20 Paraplegia, unspecified; I10 Essential (primary) hypertension; Z79.899 Other long term (current) drug therapy; Z88.1 Allergy status to other antibiotic agents; Z98.890 Other specified postprocedural states; Y84.6 Urinary catheterization as the cause of abnormal reaction of the patient, or of later complication, without mention of misadventure at the time of the procedure
CPT/HCPCS: 51702; 81001; 87086; 87186

== ENCOUNTER 2024-01-12 05:21 | Emergency (ER) | payer OTHER, MEDICARE ==
[~2024-01-12] VITALS: Ht 182.9 cm; Wt 97.5 kg
[~2024-01-12 05:21] MED LIST changes: +FOSF3PAC4 PO
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
--- NOTE | 2024-01-12 06:41 | NUR ---
EMS CALLED FOR TRANSPORT.
[2024-01-12 06:57] VITALS: BP 140/78; PULSE 78; RESP 18; TEMP 98.2; O2SAT 98
== END 2024-01-12 09:06 | disposition home or self-care (01) ==
LOC: EDH 05:21
DX: T25.53 Corrosion of first degree of toe(s) (nail) (principal); F32.A Depression, unspecified; I10 Essential (primary) hypertension; Z79.899 Other long term (current) drug therapy; Z88.1 Allergy status to other antibiotic agents; Y93.89 Activity, other specified; Y92.89 Other specified places as the place of occurrence of the external cause; Y99.8 Other external cause status
CPT/HCPCS: 99281

== ENCOUNTER 2024-01-20 00:46 | Inpatient (IN) | payer OTHER, MEDICARE ==
[~2024-01-20] VITALS: Ht 182.9 cm; Wt 90.7 kg
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
[2024-01-20 01:21] LABS: BASOPHILS # (AUTO) 0.02 K/uL (0.00-0.20); BASOPHILS % (AUTO) 0.2 % (0.0-5.0); EOSINOPHILS # (AUTO) 0.13 K/uL (0.00-0.70); EOSINOPHILS % (AUTO) 1.2 % (0.0-8.0); HEMATOCRIT 41.1 % (42-54); IMMATURE GRANULOCYTE ABSOLUTE 0.04 K/uL (0-1); LYMPHOCYTES # (AUTO) 1.3 K/uL (1.0-4.8); LYMPHOCYTES % (AUTO) 12.2 % (21.0-51.0); MEAN CORPUSCULAR HEMOGLOBIN 28.4 pg (27.0-33.0); MEAN CORPUSCULAR HGB CONC 32.8 g/dL (32.0-36.0); MEAN CORPUSCULAR VOLUME 86.5 fL (79-99); MONOCYTES # (AUTO) 0.5 K/uL (0.1-1.0); MONOCYTES % (AUTO) 4.5 % (3.0-13.0); NEUTROPHILS # (AUTO) 8.5 K/uL (1.8-7.7); NEUTROPHILS % (AUTO) 81.5 % (40.0-77.0); PLATELET COUNT (AUTO) 272 K/uL (130-400); RED BLOOD CELL COUNT(AUTO) 4.75 MIL/uL (4.50-6.20); RED CELL DISTRIBUTION WIDTH 13.6 % (11.0-15.5); WHITE BLOOD COUNT (AUTO) 10.5 K/uL (4.8-10.8)
[2024-01-20 01:24] LABS: CREATININE 0.7 mg/dL (0.5-1.3)
[2024-01-20 01:26] LABS: POTASSIUM 2.9 mmol/L (3.5-5.1)
[2024-01-20] MEDS: HYDROcodone/APAP 5/325 1 TAB TABLET PO ONE (01:33)
[2024-01-20] MEDS: PoTASSium BIcarbonate/CIT AC 25 MEQ TABLET.EFF PO ONE (01:33)
[2024-01-20] MEDS: ketOROlac 15MG/ML VIAL (15MG/ML) IV ONE (01:33)
[2024-01-20 02:30] LABS: ERYTHROCYTE SEDIMENTATION RATE 25 MM/HR (0-15)
[2024-01-20] MEDS ORDERED: ondanSETRON 4MG INJ IVP PRN (02:30)
[2024-01-20] MEDS ORDERED: acetaMINOPHEN 325 MG TAB PO PRN (02:30)
[2024-01-20] MEDS ORDERED: VANCOMYCIN 1G/250ML KIT 250 ML IV SCH ×2 (02:30→10:30)
[2024-01-20] MEDS ORDERED: VANCOMYCIN 2GM/500 ML BAG 500 ML IV ONE (02:30)
[2024-01-20] MEDS ORDERED: VANCOMYCIN PROTOCOL PER PHARMACY IV SCH (02:30)
[2024-01-20] MEDS: ZOSYN 3.375GM +NS 50ML IV SCH (02:41)
[2024-01-20] MEDS: CLINDAMYCIN IVPB 900MG/50ML IV ONE (02:41)
--- NOTE | 2024-01-20 04:01 | NUR ---
PATIENT SLEEPING, NO DISTRESS NOTED.
--- NOTE | 2024-01-20 04:13 | NUR ---
NURSE BUSY FOR REPORT AT THIS TIME.
[2024-01-20 05:20] VITALS: BP 126/86; PULSE 73; RESP 20; TEMP 98.8; O2SAT 96
[2024-01-20 07:19] LABS: CREATININE 0.8 mg/dL (0.5-1.3); POTASSIUM 3.8 mmol/L (3.5-5.1)
[2024-01-20 07:20] LABS: BASOPHILS # (AUTO) 0.03 K/uL (0.00-0.20); BASOPHILS % (AUTO) 0.3 % (0.0-5.0); EOSINOPHILS # (AUTO) 0.31 K/uL (0.00-0.70); EOSINOPHILS % (AUTO) 3.6 % (0.0-8.0); HEMATOCRIT 38.9 % (42-54); IMMATURE GRANULOCYTE ABSOLUTE 0.04 K/uL (0-1); LYMPHOCYTES # (AUTO) 2.3 K/uL (1.0-4.8); LYMPHOCYTES % (AUTO) 26.1 % (21.0-51.0); MEAN CORPUSCULAR HGB CONC 31.9 g/dL (32.0-36.0); MEAN CORPUSCULAR VOLUME 87.8 fL (79-99); MONOCYTES # (AUTO) 0.7 K/uL (0.1-1.0); MONOCYTES % (AUTO) 8.1 % (3.0-13.0); NEUTROPHILS # (AUTO) 5.3 K/uL (1.8-7.7); NEUTROPHILS % (AUTO) 61.4 % (40.0-77.0); PLATELET COUNT (AUTO) 268 K/uL (130-400); RED BLOOD CELL COUNT(AUTO) 4.43 MIL/uL (4.50-6.20); RED CELL DISTRIBUTION WIDTH 13.8 % (11.0-15.5); WHITE BLOOD COUNT (AUTO) 8.6 K/uL (4.8-10.8)
[2024-01-20 07:42] LABS: MAGNESIUM 1.7 mg/dL (1.80-2.40)
[2024-01-20 08:00] VITALS: BP 117/70; PULSE 81; RESP 18; TEMP 97.7; O2SAT 96
[2024-01-20] MEDS: ENOXAPARIN SODIUM 30 MG/0.3 ML SQ SCH (08:55)
[2024-01-20 12:00] VITALS: BP 131/81; PULSE 80; RESP 18; TEMP 98
[2024-01-20 16:00] VITALS: BP 123/74; PULSE 81; RESP 18; TEMP 98.1
--- NOTE | 2024-01-20 18:49 | NUR ---
INITIAL/DCP-HOME Met w pt this evening to discuss dcp. PT admitted w sacral ulcer/hyperkalemia. EC mother Roxy White [phone]. Pt mentions that he lives w his mother. He is wc bound however can transfer himself independently. He completes ADLs w setup. Pt receives approx 29hrs/week of provider services from [facility] and 3hrs daily of respite. His mother is able to provide transportation where needed. Discharge goal is to return home. However pt mentions that he has been to [facility] and [facility] before and would be open to these options if Md recommends. Addendum: 01/20/24 at 1853 by SADIE MAHMOOD CM Amended: Links added.
[2024-01-20 20:00] VITALS: BP 153/86; PULSE 73; RESP 18; TEMP 98.4
[2024-01-20 20:30] VITALS: O2SAT 97
[2024-01-20] MEDS: ALPRAZolam 1 MG TAB PO SCH (21:00)
[2024-01-20] MEDS: AMITRIPTYLINE 25 MG TABLET PO SCH (21:01)
[2024-01-21] VITALS (8 sets, daily range): BP systolic 107–167; BP diastolic 59–91; PULSE 65–98; RESP 16–18; TEMP 98.1–98.8; O2SAT 98–100
--- NOTE | 2024-01-21 04:26 | HP ---
DATE OF SERVICE: 01/20/2024. HISTORY AND PHYSICAL PRESENTING COMPLAINT: Lower back pain and ulcer. HISTORY OF PRESENT ILLNESS: This is a 43-year-old male with history of hypertension, neurogenic bladder, and spinal cord injury, presented to the hospital with a wound to the sacrococcygeal area. The patient has history of chronic wound to the sacrococcygeal area. Claims, he probably slipped on a metal object without knowing. Subsequently, noticed worsening of wound to the sacral area. No fever or chills. Complaining of generalized weakness. In the Emergency Room, the patient was found with potassium of 2.9. No chest pain, no palpitation or orthopnea. The patient has a chronic sacrococcygeal ulcer. He claims he has not been following up with any doctor. PAST MEDICAL HISTORY: * Hypertension. * Dyslipidemia. * Neurogenic bladder. * Paraplegia of lower extremities. * Obesity. * Urinary tract infection. * Sacrococcygeal ulcer. PAST SURGICAL HISTORY: * Spinal cord surgery. * Back surgery. ALLERGIES: VANCOMYCIN. HOME MEDICATIONS: Reviewed. SOCIAL HISTORY: Lives alone. No alcohol, tobacco or illicit drug use. FAMILY HISTORY: Noncontributory. REVIEW OF SYSTEMS: Greater than 10 systems were reviewed, negative except as documented above. PHYSICAL EXAMINATION: GENERAL: Young male. VITAL SIGNS: Temperature 98.8, pulse 73, respiratory rate 20, and BP 126/86. EYES: No icterus. Pupils equal and reactive. HENT: No oral thrush seen. Moist oral mucosa. NECK: Supple, no JVD or thyromegaly. LUNGS: Good air entry. No rales, no rhonchi. CARDIOVASCULAR: S1, S2 regular. No murmur heard. ABDOMEN: Obese, soft, and nontender. Bowel sounds are present. CENTRAL NERVOUS SYSTEM: Awake, alert and oriented x 3, bedbound, and paraplegia of lower extremity. SKIN: No rashes, no itchiness. LYMPHATIC: No peripheral lymphadenopathy. BACK: Stage II ulcer in the sacrococcygeal area. HEMATOLOGIC: No bleeding or petechial lesions seen. LABORATORY DATA: Sodium 140, potassium 3.8, BUN 10, and creatinine 0.8. WBC 8.7, hemoglobin 12.4, and platelet 260. ASSESSMENT: A 43-year-old male presenting with weakness and sacral wound. CURRENT PROBLEMS: Include: * Stage II sacrococcygeal ulcer. * Hypertension. * Hypokalemia. * Paraplegia of lower extremity. * Neurogenic bladder. * Obesity. PLAN: * The patient will be admitted to medical floor. * Electrolyte will be corrected. * Start the patient on vancomycin. * Start the patient on Zosyn. * Wound Care consult. * Lovenox for DVT prophylaxis. * Tylenol as needed for pain or fever. * Zofran as needed for nausea and vomiting. TID: [id number] RECEIPT: [id number]
[2024-01-21 06:11] LABS: BASOPHILS # (AUTO) 0.03 K/uL (0.00-0.20); BASOPHILS % (AUTO) 0.5 % (0.0-5.0); EOSINOPHILS # (AUTO) 0.27 K/uL (0.00-0.70); EOSINOPHILS % (AUTO) 4.1 % (0.0-8.0); HEMATOCRIT 40.6 % (42-54); IMMATURE GRANULOCYTE ABSOLUTE 0.02 K/uL (0-1); LYMPHOCYTES # (AUTO) 1.6 K/uL (1.0-4.8); LYMPHOCYTES % (AUTO) 24.5 % (21.0-51.0); MEAN CORPUSCULAR HEMOGLOBIN 27.9 pg (27.0-33.0); MEAN CORPUSCULAR HGB CONC 31.5 g/dL (32.0-36.0); MEAN CORPUSCULAR VOLUME 88.6 fL (79-99); MONOCYTES # (AUTO) 0.5 K/uL (0.1-1.0); MONOCYTES % (AUTO) 8.1 % (3.0-13.0); NEUTROPHILS # (AUTO) 4.1 K/uL (1.8-7.7); NEUTROPHILS % (AUTO) 62.5 % (40.0-77.0); PLATELET COUNT (AUTO) 310 K/uL (130-400); RED BLOOD CELL COUNT(AUTO) 4.58 MIL/uL (4.50-6.20); RED CELL DISTRIBUTION WIDTH 13.9 % (11.0-15.5); WHITE BLOOD COUNT (AUTO) 6.5 K/uL (4.8-10.8)
[2024-01-21 06:24] LABS: CREATININE 0.9 mg/dL (0.5-1.3); POTASSIUM 3.7 mmol/L (3.5-5.1)
[2024-01-21 07:36] LABS: MAGNESIUM 1.8 mg/dL (1.80-2.40)
[2024-01-21] MEDS: oxyBUTYnin chloRIDE 5 MG TABLET PO SCH (08:37)
[2024-01-21] MEDS: LISINOPRIL 20 MG TABLET PO SCH (08:37)
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
[2024-01-21] MEDS ORDERED: PoTASSium chloRIDE 20MEQ/100ML 100 ML IV PRN (13:00)
[2024-01-21] MEDS ORDERED: VANCOMYCIN PROTOCOL PER PHARMACY IV SCH (15:00)
[2024-01-21] MEDS ORDERED: VANCOMYCIN 1G/250ML KIT 250 ML IV SCH (15:25)
[2024-01-21] MEDS: MAGNESIUM 2GM PREMIX 50ML 50 ML IV PRN (16:26)
[2024-01-21] MEDS: PoTASSium chl 10% ELIXIR 20MEQ 20 MEQ/15 ML UDCUP PO PRN (16:26)
[2024-01-21] MEDS: PoTASSium chloRIDE 20MEQ ER 20 MEQ ERTAB PO PRN (16:26)
--- NOTE | 2024-01-21 17:30 | NUR ---
Order received for Overhead trapeze bar placement. Order completed for overhead trapeze with triangle adjusted to patient comfort level. Nursing notified.
[2024-01-21 20:06] LABS: APPEARANCE,URINE CLOUDY (CLEAR); BILIRUBIN,URINE NEGATIVE (NEGATIVE); COLOR,URINE LIGHT-YELLOW (YELLOW); GLUCOSE, URINE (UA) NEGATIVE (NEGATIVE); KETONES,URINE NEGATIVE (NEGATIVE); LEUKOCYTE ESTERASE ,URINE 500 Leu/uL (NEGATIVE); NITRATE,URINE NEGATIVE (NEGATIVE); PH,URINE 7.5 (5.0-8.0); PROTEIN,URINE NEGATIVE (NEGATIVE); UROBILINOGEN,URINE 0.2 mg/dL (0.2-1.0)
[2024-01-21 20:08] LABS: ADD UA MICROSCOPIC YES
[2024-01-21 20:12] LABS: BACTERIA,URINE FEW /HPF (None Seen); HYALINE CASTS, URINE 0-1 /LPF (0-1 /LPF); MUCUS,URINE FEW LPF (None Seen); SQUAMOUS EPITHELIAL CELL,UR RARE /HPF (0-2); WBC CLUMP FEW /HPF (0-1); WBC,URINE 26-50 /HPF (0-1)
[2024-01-22] VITALS (9 sets, daily range): BP systolic 99–141; BP diastolic 59–94; PULSE 53–102; RESP 16–20; TEMP 97.8–99; O2SAT 97–100
[2024-01-22 05:17] LABS: BASOPHILS # (AUTO) 0.03 K/uL (0.00-0.20); BASOPHILS % (AUTO) 0.5 % (0.0-5.0); EOSINOPHILS # (AUTO) 0.26 K/uL (0.00-0.70); EOSINOPHILS % (AUTO) 4.2 % (0.0-8.0); HEMATOCRIT 42.2 % (42-54); IMMATURE GRANULOCYTE ABSOLUTE 0.03 K/uL (0-1); LYMPHOCYTES # (AUTO) 1.7 K/uL (1.0-4.8); LYMPHOCYTES % (AUTO) 26.6 % (21.0-51.0); MEAN CORPUSCULAR HEMOGLOBIN 27.6 pg (27.0-33.0); MONOCYTES # (AUTO) 0.5 K/uL (0.1-1.0); NEUTROPHILS # (AUTO) 3.8 K/uL (1.8-7.7); NEUTROPHILS % (AUTO) 60.2 % (40.0-77.0); PLATELET COUNT (AUTO) 330 K/uL (130-400); RED BLOOD CELL COUNT(AUTO) 4.74 MIL/uL (4.50-6.20); WHITE BLOOD COUNT (AUTO) 6.2 K/uL (4.8-10.8)
[2024-01-22 05:24] LABS: CREATININE 0.9 mg/dL (0.5-1.3); MAGNESIUM 2.2 mg/dL (1.80-2.40); POTASSIUM 3.7 mmol/L (3.5-5.1)
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
--- NOTE | 2024-01-22 16:21 | NUR ---
[facility] Consult: Patient assessed by wound healing team. See wound assessment. Assessment and recommendations provided to primary nurse. Education provided. Addendum: 01/23/24 at 1552 by ZEYNEP RODRIGUEZ RN RN/ Amended: Links added.
--- NOTE | 2024-01-22 19:55 | NUR ---
MEDS SHIFT ASSESSMENT DONE, PLEASE REFER TO CHART. DUE MEDS ADMINISTERED, TOLERATED WELL. KEPT RESTED AND COMFORTABLE IN BED. CALL LIGHT WITHIN REACH.
[2024-01-22] MEDS: acetaMINOPHEN 325 MG TAB PO PRN (23:31)
[2024-01-23] VITALS (8 sets, daily range): BP systolic 109–119; BP diastolic 54–76; PULSE 63–98; RESP 16–18; TEMP 97.7–98.9; O2SAT 97–100
--- NOTE | 2024-01-23 06:00 | NUR ---
ROUNDS PT STILL FAIRLY ASLEEP. RESPIRATIONS EVEN AND UNLABORED. NO DISTRESS NOTED. KEPT UNDISTURBED FOR NOW. CALL LIGHT WITHIN REACH. FOR MORE CARE.
[2024-01-23] MEDS: HONEY 1 APPL/ML TUBE TP SCH (08:47)
--- NOTE | 2024-01-23 15:00 | NUR ---
At 0930 wound care rendered medi honey to sacrum applied and covered, tolerated well. At 1445 16Fr Lan exchanged due to lan not having date and time. Pt also complained of lan being short and not enough tubing stated he cut the tubing to make it shorter. Placed a 16 Lan pt tolerated well, urine yellow, dated and timed.
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
--- NOTE | 2024-01-23 21:10 | NUR ---
MEDS SHIFT ASSESSMENT DONE DONE, PLEASE REFER TO CHART. DUE MEDS ADMINISTERED, TOLERATED WELL. KEPT RESTED AND COMFORTABLE IN BED. CALL LIGHT WITHIN REACH. BED ALARM KEPT ACTIVATED. KEPT DOOR OPEN TO WATCH PT CLOSELY.
[2024-01-24] VITALS (7 sets, daily range): BP systolic 99–124; BP diastolic 56–89; PULSE 65–96; RESP 16–20; TEMP 97.5–98.1; O2SAT 97–98
--- NOTE | 2024-01-24 06:10 | NUR ---
ROUNDS PT ALREADY AWAKE. NO CONCERNS VERBALIZED. NO DISTRESS NOTED. PROVIDED PRUNE JUICE. PT STILL HAS NO BM. KEPT COMFORTABLE. FOR MORE CARE.
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
[2024-01-24] MEDS ORDERED: LACTULOSE 20 GM/30 ML UDCUP PO PRN (15:00)
[2024-01-24 15:49] LABS: INR 1.04 (0.85-1.15); PROTHROMBIN TIME 11.2 SEC (9.6-11.6)
--- NOTE | 2024-01-24 17:34 | NUR ---
Discharge Planning: Referral sent to [facility]. Pending insurance authorization.
--- NOTE | 2024-01-24 22:36 | NUR ---
MIDLINE INSERTION 5 FR 2 LUMEN MIDLINE INSERTED TO LEFT UPPER ARM BASILIC VEIN USING STERILE TECHNIQUE. ULTRASOUND GUIDED USING MST. INTERNAL CATHETER LENGTH 15 CM. EXTERNAL CATHETER LENGTH 0 CM. MIDLINE CARE: - PERFORM HAND HYGIENE, WEAR GLOVES, SCRUB THE HUB FOR 15 SECONDS BEFORE EVERY ACCESS. - FLUSH BOTH LUMENS WITH 10 ML NS FLUSH EVERY 12 HOURS IF LINE IS NOT IN USE AND CLAMP AFTER EVERY ACCESS. - CHANGE MIDLINE DRESSING EVERY 7 DAYS AND PRN IF SOILED OR PEELING OFF.
[2024-01-25] VITALS (8 sets, daily range): BP systolic 104–130; BP diastolic 68–85; PULSE 66–102; RESP 16–20; TEMP 97.7–98.7; O2SAT 96–100
--- NOTE | 2024-01-25 14:40 | NUR ---
Discharge Planning: Received call from Adriana at [facility] saying that they are unable to accept patient "because they will not be able to make any money off of him." Referral sent to [facility], patient's second choice. Pending insurance authorization.
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
[2024-01-26] VITALS: BP 101/66; PULSE 92; RESP 18; TEMP 98.2
[2024-01-26 04:00] VITALS: BP 108/63; PULSE 74; RESP 17; TEMP 98
[2024-01-26 05:54] LABS: HEMATOCRIT 43.6 % (42-54); MEAN CORPUSCULAR HGB CONC 31.7 g/dL (32.0-36.0); MEAN CORPUSCULAR VOLUME 88.4 fL (79-99); RED BLOOD CELL COUNT(AUTO) 4.93 MIL/uL (4.50-6.20); RED CELL DISTRIBUTION WIDTH 13.9 % (11.0-15.5)
[2024-01-26 06:11] LABS: ALBUMIN 2.8 g/dL (3.5-5.0); BILIRUBIN,TOTAL 0.3 mg/dL (0.2-1.0); POTASSIUM 3.9 mmol/L (3.5-5.1); TOTAL PROTEIN, SERUM 7.1 g/dL (6.0-8.3)
[2024-01-26 08:00] VITALS: O2SAT 96
[2024-01-26 08:30] VITALS: BP_SYST 101; BP_SYST 153; BP_DIAS 101; BP_DIAS 73; PULSE 72; PULSE 87; RESP 16; RESP 18; TEMP 97.8; TEMP 98.1
[2024-01-26 11:48] VITALS: BP 107/74; PULSE 89; RESP 16; TEMP 98.2
--- NOTE | 2024-01-26 13:00 | NUR ---
CALLED [facility] FOR [facility], SPOKE WITH MRS. HERI PRYOR. CALLED EMS FOR TRANSPORTANTION.
--- NOTE | 2024-01-26 13:36 | NUR ---
Discharge Planning: Pt. accepted at [facility]. PCP and nurse are aware. PCS and yellow sheet flagged and placed in front of chart.
--- NOTE | 2024-01-26 16:30 | NUR ---
PERFORMED MIDLINE DRESSING CHANGE BEFORE TRANSFER, GAVE PATIENT A BED BATH WITH THE ASSISTANCE OF MRS. WARD, [place]. PATIENT IS ALERT, ORIENTED IN PERSON, TIME AND PLACE. NO SIGNS OR SYMPTOMS OF RESPIRATORY DISTRESS. BOWEL SOUNDS PRESENT IN ALL FOUR ABDOMINAL QUADRANTS. DORSALIS PEDIS PRESENT ON BOTH FEET. DISCUSSED TRANSFERED TO [facility], PLAN OF CARE, PAIN MANAGEMENT, HYGIENE AND WOUND CARE. PATIENT VERBALIZED UNDERSTANDING.
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
--- NOTE | 2024-01-26 18:10 | NUR ---
PATIENT LEFT VIA EMS. PATIENT LEFT WITH MIDLINE ON LEFT UPPER ARM DUE TO [facility] HOME ANTIBIOTIC.
== END 2024-01-26 18:00 | DRG 698 ==
LOC: EDH 00:46 → EDHIP 02:08 → 3CH 05:20
PROVIDERS: ADMIT Internal Medicine Infectious Disease; ATTEND Internal Medicine Infectious Disease
DX: T83.511A Infection and inflammatory reaction due to indwelling urethral catheter, initial encounter (principal); L89.153 Pressure ulcer of sacral region, stage 3; G82.20 Paraplegia, unspecified; Z16.24 Resistance to multiple antibiotics; E87.6 Hypokalemia; N39.0 Urinary tract infection, site not specified; B96.29 Other Escherichia coli [E. coli] as the cause of diseases classified elsewhere; I10 Essential (primary) hypertension; N31.9 Neuromuscular dysfunction of bladder, unspecified; E66.9 Obesity, unspecified; B96.4 Proteus (mirabilis) (morganii) as the cause of diseases classified elsewhere; B96.5 Pseudomonas (aeruginosa) (mallei) (pseudomallei) as the cause of diseases classified elsewhere; E78.5 Hyperlipidemia, unspecified; Z88.8 Allergy status to other drugs, medicaments and biological substances; Z68.27 Body mass index [BMI] 27.0-27.9, adult; T14.8XXA Other injury of unspecified body region, initial encounter; V89.2XXA Person injured in unspecified motor-vehicle accident, traffic, initial encounter; Y92.89 Other specified places as the place of occurrence of the external cause
CPT/HCPCS: 36415; 80048; 80053; 81001; 83735; 85025; 85027; 85610; 85651; 86140; 87070; 87086; 87186; 96374; C1894; G0378; J1650; J1885; J2543; J3475; J3490; C1750; J3370

== ENCOUNTER 2024-01-29 12:40 | Emergency (ER) | payer OTHER, MEDICARE ==
[~2024-01-29] VITALS: Ht 182.9 cm; Wt 90.7 kg
[~2024-01-29 12:40] MED LIST changes: -FOSF3PAC4 PO; -HYDR-3422 PO; -LEVO750T68 PO
[2024-01-29 13:55] LABS: BASOPHILS # (AUTO) 0.02 K/uL (0.00-0.20); BASOPHILS % (AUTO) 0.2 % (0.0-5.0); EOSINOPHILS # (AUTO) 0.12 K/uL (0.00-0.70); EOSINOPHILS % (AUTO) 1.4 % (0.0-8.0); HEMATOCRIT 45.5 % (42-54); IMMATURE GRANULOCYTE ABSOLUTE 0.03 K/uL (0-1); LYMPHOCYTES # (AUTO) 1.8 K/uL (1.0-4.8); MEAN CORPUSCULAR HEMOGLOBIN 28.1 pg (27.0-33.0); MEAN CORPUSCULAR HGB CONC 32.3 g/dL (32.0-36.0); MEAN CORPUSCULAR VOLUME 86.8 fL (79-99); MONOCYTES # (AUTO) 0.8 K/uL (0.1-1.0); MONOCYTES % (AUTO) 9.9 % (3.0-13.0); NEUTROPHILS # (AUTO) 5.5 K/uL (1.8-7.7); NEUTROPHILS % (AUTO) 66.1 % (40.0-77.0); PLATELET COUNT (AUTO) 345 K/uL (130-400); RED BLOOD CELL COUNT(AUTO) 5.24 MIL/uL (4.50-6.20); WHITE BLOOD COUNT (AUTO) 8.4 K/uL (4.8-10.8)
[2024-01-29 14:06] LABS: POTASSIUM 3.9 mmol/L (3.5-5.1)
--- NOTE | 2024-01-29 14:57 | ERN ---
General Chief Complaint: Wound Check Stated Complaint: sacral wound Time Seen by MD: 12:41 Time Seen by Midlevel: 12:41 Source: patient History of Present Illness Initial Comments Patient is a 43-year-old male with a past medical history paraplegia presenting to the ER for evaluation of a sacral ulcer. Patient was seen in our hospital last week and admitted for a sacral ulcer. Wound cultures were obtained and came back for Pseudomonas. Patient was started on IV Zosyn and discharged to [facility] for IV Zosyn for the next two weeks. Two days into his stay at the custodial he reports leaving against medical advice and went back home. When he arrived home his sister was concerned that he should and have left and decided to call EMS so they can bring him to the ER for further evaluation. On arrival patient has no complaints. He states he does not want to go back to [facility] in [place]. Allergies: Coded Allergies: vancomycin (Unverified Allergy, Unknown, ITCHING, 03/23/22) Home Meds Reported Medications Alprazolam (Alprazolam) 1 Mg Tablet, 1 MG PO BID, TAB 12/25/22 Oxybutynin Chloride (Oxybutynin Chloride ER) 15 Mg Tab.er.24, 15 MG PO BID, #1 05/22/17 Lisinopril (Lisinopril) 20 Mg Tablet, 20 MG PO DAILY, TAB 05/22/17 Amitriptyline HCl (Amitriptyline HCl) 25 Mg Tablet, 25 MG PO HS, #2 TAB 05/22/17 Past Medical History Past Medical History: Other Medical History Other: PARAPLEGIC ( SPINAL CORD INJURY 2000) Past Surgical History: None Surgical History Other: SPINAL SURG. Family History Family History: Negative Social History Social History: Negative, Lives with family ROS Dictation CONSTITUTIONAL: Negative except for HPI HEAD/FACE: Negative except for HPI EENT: Negative except for HPI RESPIRATORY: Negative except for HPI GASTROINTESTINAL/ABDOMINAL: Negative except for HPI GENITOURINARY: Negative except for HPI MUSCULOSKELETAL: Negative except for HPI INTEGUMENTARY: Negative except for HPI NEUROLOGICAL/PSYCH: Negative except for HPI HEMATOLOGIC/LYMPHATIC: Negative except for HPI All Systems Negative, Except as noted above. 13 point review of systems assessed and all negative except for above. Physical Exam Physical Exam Dictation Vital Signs reviewed General Appearance: Alert, oriented x 3, no acute distress, well developed, nourished. Head and Face: non-traumatic. Eyes: PERRL, pink conjunctivas, eyelid no trauma, anterior chamber with arcus senilis. Ears: Pinnas intact and no signs of trauma or erythema ear canals clear and no discharge TM no erythema Nose: No discharge, no bleeding. Oropharynx: Mouth normal, tongue pink, pharynx clear,no erythema, tonsils no exudates, no abscesses noted, mucous membrane moist Neck: Supple, non-tender, no thyromegaly, no masses, no JVD, no bruits Breast:Deferred Chest:No tenderness, no crepitus, no paradoxical movement, no retractions Lungs:Clear, well-ventilated, symmetric, no rales, no wheezing, no rhonchi, no stridor, good breath sounds bilaterally Heart: Regular rate, regular rhythm, no murmur, no gallops Vascular: no peripheral edema, Abdomen: Soft, positive bowel sounds, nondistended, no guarding, nontender, no rebound, no masses no hepatomegaly, no splenomegaly, no Chavez's sign, no hernias. Rectal: Deferred Genital: Deferred Neurological: Normal speech, motor function intact, sensory function intact Musculoskeletal: Neck nontender, Extremities: Paraplegic Skin: Sacral ulcer with no signs of infection or abscess Lymphatic: Deferred Results Laboratory and Microbiology Lab and Micro Result Laboratory Tests Test 01/29/24 13:33 White Blood Count 8.4 K/uL (4.8-10.8) Red Blood Count 5.24 MIL/uL (4.50-6.20) Hemoglobin 14.7 g/dL (14.0-18.0) Hematocrit 45.5 % (42-54) Mean Corpuscular Volume 86.8 fL (79-99) Mean Corpuscular Hemoglobin 28.1 pg (27.0-33.0) Mean Corpuscular Hemoglobin Concent 32.3 g/dL (32.0-36.0) Red Cell Distribution Width 14.0 % (11.0-15.5) Platelet Count 345 K/uL (130-400) Mean Platelet Volume 9.1 fL (7.5-10.5) Immature Granulocyte % (Auto) 0.4 % (0-1) Neutrophils (%) (Auto) 66.1 % (40.0-77.0) Lymphocytes (%) (Auto) 22.0 % (21.0-51.0) Monocytes (%) (Auto) 9.9 % (3.0-13.0) Eosinophils (%) (Auto) 1.4 % (0.0-8.0) Basophils (%) (Auto) 0.2 % (0.0-5.0) Neutrophils # (Auto) 5.5 K/uL (1.8-7.7) Lymphocytes # (Auto) 1.8 K/uL (1.0-4.8) Monocytes # (Auto) 0.8 K/uL (0.1-1.0) Eosinophils # (Auto) 0.12 K/uL (0.00-0.70) Basophils # (Auto) 0.02 K/uL (0.00-0.20) Absolute Immature Granulocyte (auto 0.03 K/uL (0-1) Nucleated Red Blood Cells 0.0 % (0.0-0.19) Sodium Level 141 mmol/L (136-145) Potassium Level 3.9 mmol/L (3.5-5.1) Chloride Level 102 mmol/L (101-111) Carbon Dioxide Level 31 mmol/L (21-32) Blood Urea Nitrogen 19 mg/dL (7-18) H Creatinine 1.0 mg/dL (0.5-1.3) Glomerular Filtration Rate Calc 96 mL/min (>90) Random Glucose 99 mg/dL (70-105) Total Calcium 9.3 mg/dL (8.5-10.1) Labs Reviewed?: Yes MDM MDM: Patient is a 43-year-old male with a past medical history paraplegia p resenting to the ER for evaluation of a sacral ulcer. Patient was seen in our hospital last week and admitted for a sacral ulcer. Wound cultures were obtained and came back for Pseudomonas. Patient was started on IV Zosyn and discharged to [facility] for IV Zosyn for the next two weeks. Two days into his stay at the custodial he reports leaving against medical advice and went back home. When he arrived home his sister was concerned that he should and have left and decided to call EMS so they can bring him to the ER for further evaluation. On arrival patient has no complaints. He states he does not want to go back to [facility] in [place]. On physical examination there is a sacral ulcer however there is no signs of infection or abscess. Obtain basic blood work which reveal no leukocytosis. His chemistries are unremarkable. His hemoglobin is stable. His initial vital signs are unremarkable. Patient is afebrile and nontoxic appearing. I spoke with infectious disease specialist Dr. Hu who states patient does not need to be admitted so that he can be placed back into custodial. He will need to follow up with his primary care doctor so they can set him up again given that he left against medical advice. Patient will be given one dose of Zosyn in the emergency department and will be discharged back home. Differential diagnosis: Wound evaluation, cellulitis, abscess There are no social concerns with this patient. Prescription drug management Prescriptions will include: None Medical management and examination interpretation discussions were had by me with other qualified healthcare professionals as indicated for the patient's care. ED Course Orders Procedure Category Date Status Time Cbc With Differential LAB 01/29/24 Complete 13:01 Basic Metabolic Panel LAB 01/29/24 Complete 13:01 Vital Signs Date Time Temp Pulse Resp B/P (MAP) Pulse Ox O2 Delivery O2 Flow Rate FiO2 01/29/24 12:41 98.4 102 20 124/88 99 2:45 PM: Spoke over the phone with Dr. Hu who states patient does not need to be admitted so he can be sent back to custodial. Since patient left against medical advice he will need to be following up with his primary care doctor for can set him up with either home health or put him back in the custodial for IV antibiotics. DX & DISP Disposition: Discharge Departure Impression: Primary Impression: Decubitus ulcer Condition: Stable Additional Instructions: Your blood work today is unremarkable. There are no signs of systemic infection. Your decubitus ulcer appears to be healing well and there were no signs of infection. We spoke with the infectious disease specialist who states you do not need to be admitted. You will need to follow up with your primary care doctor so they can set you up with either home health or [facility] custodial. You will need to follow up with your PCP to have this arranged. Return to the ER for any new or worsening symptoms. Referrals: VASILIY CLEMENT (PCP) Time of Disposition: 14:19 I have reviewed the case, and I agree with, Diagnosis and Plan I performed the substantive portion of the visit. I have reviewed and personally made and approve the management plan that is documented in the note by myself or the DONI. I acknowledge for responsibility for the patient's management plan. SILKE PEACOCK Jan 29, 2024 14:56
[2024-01-29] MEDS: ZOSYN 3.375GM +NS 50ML IV ONE (15:09)
[2024-01-29 20:51] VITALS: BP 125/72; PULSE 93; RESP 18; TEMP 98.1; O2SAT 99
--- NOTE | 2024-01-29 20:53 | EKG ---
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
== END 2024-01-29 20:53 | disposition home or self-care (01) ==
LOC: EDH 12:40
DX: L89.159 Pressure ulcer of sacral region, unspecified stage (principal); Z79.899 Other long term (current) drug therapy; Z88.1 Allergy status to other antibiotic agents; Z98.890 Other specified postprocedural states
CPT/HCPCS: 99284; 96365; 80048; 85025; 36415; 93005; J2543

== ENCOUNTER 2024-11-05 20:41 | Emergency (ER) | payer OTHER, MEDICAID ==
[~2024-11-05] VITALS: Ht 182.9 cm; Wt 90.7 kg
[~2024-11-05 20:41] MED LIST changes: +AMIT25TA21 PO; -AMIT25TA9 PO; -OXYB15TA19 PO
[2024-11-05 21:08] VITALS: BP 135/66; PULSE 88; RESP 18; TEMP 98.5; O2SAT 99
--- NOTE | 2024-11-05 21:08 | ERN ---
ED Note History of Present Illness Stated Complaint: EYE PAIN Chief Complaint: Eye Problems Time Seen by MD: 21:00 Dictation: PATIENT IS A 44-YEAR-OLD MALE COMING IN VIA EMS WITH COMPLAINTS OF FOREIGN BODY SENSATION TO RIGHT EYE SINCE MONDAY. HE STATES HE WAS OUTSIDE SITTING WITH SOME FRIENDS WHEN HE FELT SOMETHING FLY INTO HIS EYE. HE SAID HE HAS HAD NO DISCHARGE NO VISUAL ACUITY CHANGES. HE STATES HE DOES NOT WEAR CORRECTIVE LENSES OR CONTACT LENSES. Allergies: Coded Allergies: vancomycin (Unverified Allergy, Unknown, ITCHING, 03/23/22) Home Meds Reported Medications Alprazolam (Alprazolam) 1 Mg Tablet, 1 MG PO BID, TAB 12/25/22 Lisinopril (Lisinopril) 20 Mg Tablet, 20 MG PO DAILY, TAB 05/22/17 Amitriptyline HCl (Amitriptyline HCl) 25 Mg Tablet, 25 MG PO HS, #2 TAB 05/22/17 Past Medical History Past Medical History: Anxiety, Depression, Hypertension, Other Additional Past Medical Hx: PARAPLEGIA Surgical History: Other Surgical History Other: BACK SX Family History: Negative Social History: Negative, Lives with family RN Note Reviewed/Agreed w/PFSH: Yes Review of System Dictation CONSTITUTIONAL: NEGATIVE EXCEPT FOR HPI HEAD/FACE: NEGATIVE EXCEPT FOR HPI EENT: NEGATIVE EXCEPT FOR HPI FOREIGN BODY SENSATION RIGHT EYE RESPIRATORY: NEGATIVE EXCEPT FOR HPI GASTROINTESTINAL/ABDOMINAL: NEGATIVE EXCEPT FOR HPI GENITOURINARY: NEGATIVE EXCEPT FOR HPI MUSCULOSKELETAL: NEGATIVE EXCEPT FOR HPI INTEGUMENTARY: NEGATIVE EXCEPT FOR HPI NEUROLOGICAL/PSYCH: NEGATIVE EXCEPT FOR HPI HEMATOLOGIC/LYMPHATIC: NEGATIVE EXCEPT FOR HPI ALL SYSTEMS NEGATIVE, EXCEPT NOTED ABOVE. 13 POINT REVIEW OF SYSTEMS ASSESSED AND ALL NEGATIVE EXCEPT FOR ABOVE. Initial Vital Sign VS Vital Signs Date Time Temp Pulse Resp B/P (MAP) Pulse Ox O2 Delivery O2 Flow Rate FiO2 11/05/24 20:42 98.1 88 16 146/90 98 Room Air 0 11/05/24 21:08 21 Physical Exam Dictation VITAL SIGNS REVIEWED GENERAL APPEARANCE: ALERT, ORIENTED X 3, NO ACUTE DISTRESS, WELL DEVELOPED, NOURISHED. HEAD AND FACE: NON-TRAUMATIC. EYES: PERRL, RIGHT CONJUNCTIVA INJECTED. EOMS INTACT EARS: PINNAS INTACT AND NO SIGNS OF TRAUMA OR ERYTHEMA EAR CANALS CLEAR AND NO DISCHARGE TM NO ERYTHEMA NOSE: NO DISCHARGE, NO BLEEDING. OROPHARYNX: MOUTH NORMAL, TONGUE PINK, PHARYNX CLEAR,NO ERYTHEMA, TONSILS NO EXUDATES, NO ABSCESSES NOTED, MUCOUS MEMBRANE MOIST NECK: SUPPLE, NON-TENDER, NO THYROMEGALY, NO MASSES, NO JVD, NO BRUITS BREAST:DEFERRED CHEST:NO TENDERNESS, NO CREPITUS, NO PARADOXICAL MOVEMENT, NO RETRACTIONS LUNGS:CLEAR, WELL-VENTILATED, SYMMETRIC, NO RALES, NO WHEEZING, NO RHONCHI, NO STRIDOR, GOOD BREATH SOUNDS BILATERALLY HEART: REGULAR RATE, REGULAR RHYTHM, NO MURMUR, NO GALLOPS VASCULAR: NO PERIPHERAL EDEMA, ABDOMEN: SOFT, POSITIVE BOWEL SOUNDS, NONDISTENDED, NO GUARDING, NONTENDER, NO REBOUND, NO MASSES NO HEPATOMEGALY, NO SPLENOMEGALY, NO REGALADO'S SIGN, NO HERNIAS. RECTAL: DEFERRED GENITAL: DEFERRED NEUROLOGICAL: NORMAL SPEECH, MOTOR FUNCTION INTACT, SENSORY FUNCTION INTACT MUSCULOSKELETAL: NECK NONTENDER, FULL RANGE OF MOTION, BACK NONTENDER, FULL RANGE OF MOTION, EXTREMITIES: CHRONIC PARAPLEGIA SKIN: COLOR PINK, DRY, NO TURGOR, NO RASH, NO LACERATIONS, NO ABRASIONS, NO CONT USIONS. LYMPHATIC: DEFERRED Results (Laboratory/Radiology) Labs Reviewed?: Yes ED Course ED Course Orders Procedure Category Date Status Time Fluorescein Sodium PHA 11/05/24 Complete (Yhafv-P-Cimns At) 21:30 Visual Acuity Test CPOE 11/05/24 Transmitted (Er) 21:05 Tetracaine Hcl PHA 11/05/24 Complete (Pontocaine 0.5% 21:30 Current Medications Medications (Trade) Dose Ordered Sig/Irineo Route PRN Reason Start Time Stop Time Status Last Admin Dose Admin Fluorescein Sodium (Twqpi-Y-Uxmxn At) 1 strip ONCE ONCE OP 11/05/24 21:30 11/05/24 21:31 DC 11/05/24 21:17 Tetracaine HCl (Pontocaine 0.5% Ophth Soln) 2 drop ONCE ONCE OP 11/05/24 21:30 11/05/24 21:31 DC 11/05/24 21:15 Vital Signs Date Time Temp Pulse Resp B/P (MAP) Pulse Ox O2 Delivery O2 Flow Rate FiO2 11/05/24 21:08 98.4 88 18 135/66 99 Room Air* 0 21 11/05/24 20:42 98.1 88 16 146/90 98 Room Air 0 Medical Decision Making MDM MEDICAL DECISION-MAKING BASED ON FLUORESCEIN AND STAIN TO RIGHT EYE WITH THE EXAM WITH THE BLACK LAMP FOREIGN BODY WAS REMOVED RIGHT CORNEAL ABRASION TREATED WITH ERYTHROMYCIN OPHTHALMIC OINTMENT PAIN WAS MANAGED PATIENT WAS REFERRED TO [facility] OPHTHALMOLOGY TOMORROW Procedure Procedure Dictation: 2224/PROCEDURE EXPLAINED TO PATIENT HE AGREED TO PROCEED TWO DROPS TETRACAINE RIGHT EYE FLUORESCEIN STRIPS USED FOR STAIN RIGHT EYE EXAMINED USING BLACK LAMP TO INCLUDE EVERSION OF UPPER LID PATIENT HAD MULTIPLE SMALL COTTON FIBERS IN HIS EYE AND THESE WERE REMOVED WITH COTTON SWAB PATIENT ALSO HAS A SMALL CORNEAL ABRASION TO THE CENTER OF HIS I EYE WAS RINSED THOROUGHLY PATIENT TOLERATED WELL DX & DISP Disposition: Discharge Departure Impression: Primary Impression: Foreign body of right eye Additional Impression: Corneal abrasion, right Condition: Stable Scripts Ibuprofen (Ibuprofen 800 mg Tab) 800 Mg Tab 800 MG PO Q8H PRN for fever or pain, #30 TAB 0 Refills Prov: MALENA HYATT NP 11/05/24 Erythromycin Base (Erythromycin) 5 Mg/Gram (0.5 %) Oint...g. 1 APPL OP QID, #5 GM 0 Refills APPLY HALF-INCH RIBBON TO RIGHT EYE EVERY 6 HOURS WHILE AWAKE FOR THE NEXT SEVEN DAYS. Prov: MALENA HYATT NP 11/05/24 Additional Instructions: FOLLOW-UP WITH PRIMARY CARE PROVIDER IN 1 TO 2 DAYS. TAKE MEDICATIONS DIRECTED HERE IN THE EMERGENCY ROOM. OKAY TO CONTINUE HOME MEDICATIONS UNLESS OTHERWISE DISCUSSED DURING YOUR VISIT IN THE EMERGENCY ROOM TODAY. RETURN TO YOUR NEAREST EMERGENCY ROOM IF SYMPTOMS WORSEN OR IF THERE IS NO IMPROVEMENT. CALL 911 IF YOU NEED IMMEDIATE ASSISTANCE. TAKE TYLENOL OR MOTRIN [id number] NEEDED AND IF NO CONTRAINDICATIONS ARE PRESENT. INCREASE ORAL HYDRATION. A WOUND CULTURE OR URINE CULTURE WAS ORDERED HERE IN THE EM ERGENCY ROOM DEPARTMENT PLEASE FOLLOW-UP WITH PRIMARY CARE PROVIDER AND ADVISE THEM TO GET REPEAT PORTS FROM OUR FACILITY. IF YOU HAD ANY SAL WRAP/SPLINTS THAT WERE APPLIED HERE, PLEASE DO NOT REMOVE THEM UNTIL YOU SEE YOUR PRIMARY CARE OR SPECIALTY. CALL [facility] OPHTHALMOLOGY TOMORROW WITHOUT FAIL FOR MANAGEMENT OF YOUR CORNEAL ABRASION TO YOUR RIGHT EYE. APPLY ANTIBIOTIC OINTMENT TO YOUR RIGHT EYE EVERY 6 HOURS WHILE AWAKE FOR THE NEXT SEVEN DAYS. TAKE IBUPROFEN NEEDED FOR PAIN. Referrals: VASILIY CLEMENT (PCP) Time of Disposition: 22:38 I have reviewed the case, and I agree with, Diagnosis and Plan MALENA HYATT SET UP INSPECTOR Nov 05, 2024 21:08
[2024-11-05] MEDS: TETRACAINE HCL 0.5% 4 ML OPHTH SOLN OP ONE (21:15)
[2024-11-05] MEDS: FLUORESCEIN SODIUM 1 STRIP STRIP OP ONE (21:17)
[2024-11-05] MEDS ORDERED: IBUP-2077 PO (22:40)
[2024-11-05] MEDS ORDERED: ERYT1OIN7 OP (22:40)
[2024-11-05] MEDS: ERYTHROMYCIN BASE 0.5% OPHTH OINT 1 GM TUBE OD STA (22:44)
--- NOTE | 2024-11-06 01:00 | NUR ---
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
== END 2024-11-06 01:00 | disposition home or self-care (01) ==
LOC: EDH 20:41
DX: T15.01XA Foreign body in cornea, right eye, initial encounter (principal); F41.9 Anxiety disorder, unspecified; F32.A Depression, unspecified; I10 Essential (primary) hypertension; Z79.899 Other long term (current) drug therapy; Z88.1 Allergy status to other antibiotic agents; X58.XXXA Exposure to other specified factors, initial encounter; Y93.89 Activity, other specified; Y92.89 Other specified places as the place of occurrence of the external cause; Y99.8 Other external cause status
CPT/HCPCS: 65220; 99284

== ENCOUNTER 2024-12-27 14:14 | Emergency (ER) | payer OTHER, MEDICAID ==
[~2024-12-27] VITALS: Ht 182.9 cm; Wt 93.0 kg
[~2024-12-27 14:14] MED LIST changes: -ALPR1TAB7 PO; -LISI20TA24 PO
--- NOTE | 2024-12-27 14:36 | EKG ---
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
[2024-12-27 14:39] VITALS: BP 142/89; PULSE 81; RESP 12; TEMP 97.7; O2SAT 98
[2024-12-27 14:54] LABS: IMMATURE GRANULOCYTE ABSOLUTE 0.02 K/uL (0-1); NUCLEATED RED BLOOD CELLS 0.0 % (0.0-0.19); PLATELET COUNT (AUTO) 283 K/uL (130-400); RED BLOOD CELL COUNT(AUTO) 5.19 MIL/uL (4.50-6.20); RED CELL DISTRIBUTION WIDTH 14.4 % (11.0-15.5); WHITE BLOOD COUNT (AUTO) 5.4 K/uL (4.8-10.8)
[2024-12-27 15:03] LABS: CREATININE 0.8 mg/dL (0.5-1.3); GLOMERULAR FILTR. RATE CALC 112.0 mL/min (>90); GLUCOSE,RANDOM 90.0 mg/dL (70-105); SODIUM SERUM 144.0 mmol/L (136-145); UREA NITROGEN, BLOOD 19.0 mg/dL (7-18)
[2024-12-27 15:12] LABS: CREATINE KINASE, TOTAL 150.0 U/L (21-232)
--- NOTE | 2024-12-27 15:31 | ERN ---
General Chief Complaint: Wound Check Stated Complaint: WOUND EVAL Time Seen by MD: 14:39 Source: patient History of Present Illness Initial Comments 44-year-old male with a past medical history of osteomyelitis of the right 5th metatarsal treated with Zosyn and linezolid, hypertension and paraplegia presented to the ED from [facility] with the concern of w orsening of the wound on his right foot. He complained of subjective fever at the nursing facility and he felt he was inadequately treated with the antibiotic. He denied chest pain, shortness of breathe, cough, abdominal pain, nausea and vomiting. Wound on his right foot was examined which looked clean and dry. Allergies: Coded Allergies: vancomycin (Unverified Allergy, Unknown, ITCHING, 03/23/22) Home Meds Reported Medications Amitriptyline HCl (Amitriptyline HCl) 25 Mg Tablet, 25 MG PO HS, #2 TAB 05/22/17 Discontinued Reported Medications Alprazolam (Alprazolam) 1 Mg Tablet, 1 MG PO BID, TAB 12/25/22 Lisinopril (Lisinopril) 20 Mg Tablet, 20 MG PO DAILY, TAB 05/22/17 Past Medical History Past Medical History: Anxiety, Depression, GERD, Hypertension, Other (Osteomyelitis) Medical History Other: PARAPLEGIA Past Surgical History: None Surgical History Other: BACK SX Family History Family History: Negative Social History Social History: Negative, Lives with family ROS Dictation CONSTITUTIONAL: No chills, no weakness, no diaphoresis, no malaise. HEAD/FACE: No signs of trauma. EENT: No eye pain, no blurred vision, no tearing, no double vision, no ear pain, no ear discharge, no nose pain, no nasal congestion, no throat pain, no throat swelling, no mouth pain. RESPIRATORY: No cough, no orthopnea, SOB, no stridor, wheezing. CARDIOVASCULAR: No chest pain, no edema, no palpitations, no syncope. GASTROINTESTINAL/ABDOMINAL: No abdominal pain, no constipation, no diarrhea, no nausea, no vomiting. GENITOURINARY: Uses self catheterization for urinary MUSCULOSKELETAL: No back pain, no gout, no joint pain, no joint swelling, no muscle pain, no muscle stiffness, no neck pain. INTEGUMENTARY: Wound on his right foot and decubitus ulcer on his back NEUROLOGICAL/PSYCH: Paraplegic with numbness and muscular weakness in the bilateral lower limb HEMATOLOGIC/LYMPHATIC: Not anemic, no history of blood clots, no apparent bleeding, no bruising, glands not swollen. All Systems Negative, Except as Noted. Physical Exam Physical Exam Dictation GENERAL APPEARANCE: Alert, oriented x3, no acute distress HEAD AND FACE: Non-traumatic. EYES: PERRL, pink conjunctivas, eyelid no trauma EARS: Pinnas intact and no signs of trauma or erythema. Ear canals clear and no discharge. TMs no erythema. NOSE: No discharge, no bleeding. OROPHARYNX: Mucous membrane moist. NECK: Supple, non-tender, no thyromegaly, no masses, no JVD, no bruits. BREAST: Deferred. CHEST: No tenderness, no crepitus, no paradoxical movement, no retractions. LUNGS: Clear, well-ventilated, symmetric, no rales, wheezing, no rhonchi, no stridor, good breath sounds bilaterally. HEART: Regular rate, regular rhythm, no murmur, no gallops. VASCULAR: No peripheral edema. ABDOMEN: Soft, positive bowel sounds, nondistended, no guarding, nontender, no rebound, no masses no hepatomegaly, no splenomegaly, no Chavez's sign, no hernias. RECTAL: Deferred. GENITAL: Deferred. NEUROLOGICAL: Normal speech, bilateral lower limb motor weakness and loss of sensation MUSCULOSKELETAL: Paraplegia EXTREMITIES: Clean dry wound on the right foot Results Laboratory and Microbiology Lab and Micro Result Laboratory Tests Test 12/27/24 14:46 12/27/24 15:41 White Blood Count 5.4 K/uL (4.8-10.8) Red Blood Count 5.19 MIL/uL (4.50-6.20) Hemoglobin 14.3 g/dL (14.0-18.0) Hematocrit 45.9 % (42-54) Mean Corpuscular Volume 88.4 fL (79-99) Mean Corpuscular Hemoglobin 27.6 pg (27.0-33.0) Mean Corpuscular Hemoglobin Concent 31.2 g/dL (32.0-36.0) L Red Cell Distribution Width 14.4 % (11.0-15.5) Platelet Count 283 K/uL (130-400) Mean Platelet Volume 8.6 fL (7.5-10.5) Immature Granulocyte % (Auto) 0.4 % (0-1) Neutrophils (%) (Auto) 54.0 % (40.0-77.0) Lymphocytes (%) (Auto) 34.7 % (21.0-51.0) Monocytes (%) (Auto) 6.4 % (3.0-13.0) Eosinophils (%) (Auto) 3.9 % (0.0-8.0) Basophils (%) (Auto) 0.6 % (0.0-5.0) Neutrophils # (Auto) 2.9 K/uL (1.8-7.7) Lymphocytes # (Auto) 1.9 K/uL (1.0-4.8) Monocytes # (Auto) 0.4 K/uL (0.1-1.0) Eosinophils # (Auto) 0.21 K/uL (0.00-0.70) Basophils # (Auto) 0.03 K/uL (0.00-0.20) Absolute Immature Granulocyte (auto 0.02 K/uL (0-1) Nucleated Red Blood Cells 0.0 % (0.0-0.19) Erythrocyte Sedimentation Rate 14 MM/HR (0-15) Sodium Level 144 mmol/L (136-145) Potassium Level 4.1 mmol/L (3.5-5.1) Chloride Level 105 mmol/L (101-111) Carbon Dioxide Level 31 mmol/L (21-32) Blood Urea Nitrogen 19 mg/dL (7-18) H Creatinine 0.8 mg/dL (0.5-1.3) Glomerular Filtration Rate Calc 112 mL/min (>90) Random Glucose 90 mg/dL (70-105) Lactic Acid Level 1.4 mmol/L (0.8-2.5) Total Calcium 8.7 mg/dL (8.5-10.1) Total Creatine Kinase 150 U/L (21-232) Troponin I High Sensitivity 4 ng/L (4-75) Urine Color COLORLESS (YELLOW) Urine Appearance CLEAR (CLEAR) Urine pH 6.0 (5.0-8.0) Urine Specific [place] 1.016 (1.001-1.031) Urine Protein 10 mg/dL (NEGATIVE) H Urine Glucose (UA) NEGATIVE mg/dL (NEGATIVE) Urine Ketones NEGATIVE mg/dL (NEGATIVE) Urine Occult Blood MODERATE (NEGATIVE) H Urine Nitrate NEGATIVE (NEGATIVE) Urine Bilirubin NEGATIVE mg/dL (NEGATIVE) Urine Urobilinogen 0.2 mg/dL (0.2-1.0) Urine Leukocyte Esterase NEGATIVE Basilio/uL Urine RBC 11-25 /HPF (0-1) H Urine WBC 2-5 /HPF (0-1) H Urine Squamous Epithelial Cells RARE /HPF (0-2) Urine Calcium Oxalate Crystals RARE /LPF (None Seen) Urine Bacteria RARE /HPF (None Seen) Urine Hyaline Casts 0-1 /LPF (0-1 /LPF) Labs Reviewed?: Yes EKG/XRAY/US/CT/MRI EKG Comment [id number] time 2:30 p.m. Ventricular rate 79 Sinus [place] [address] wave elevation or depression X-RAY Comment IMAGING REPORT Signed PATIENT: RISHABH VIDAL MR#: [id number] : 1980 SEX: M AGE: 44 LOCATION: [facility] ORDER 28 STATUS: [facility] ER REPORT#: [id number] SERVICE 26 REASON: sepsis ORDERING PHYSICIAN: LIVIA HANDY MD PROCEDURE: CXR1VW - CHEST 1VW CHEST 1VW REASON: sepsis COMPARISON: None. FINDINGS: Single view of the chest was obtained. Lungs are clear. Heart size is normal. There is no pulmonary vascular congestion. Mediastinum and bony thorax appear unremarkable. Clinically screws and rods seen in the lower thoracic upper lumbar spine. IMPRESSION: 1. Unchanged from prior study with no acute cardiopulmonary process.. DICTATED BY: CORNELIUS VANN MD DATE: 12/27/241606 ELECTRONICALLY SIGNED BY: CORNELIUS VANN MD DATE: 12/27/241609 MDM MDM: Differential diagnosis: Acute osteomyelitis with ongoing treatment, wound on the right foot Rationale: Tests considered and ordered secondary to shared decision making include: CBC, BMP, chest x-ray, urinalysis, blood culture, lactate, ESR Previous outside records reviewed: Old ER visits. Risk of complication and/or morbidity or mortality of patient management: None Medications-Per medication reconciliation Need for hospitalization: Patient does not meet criteria for hospitalization. He presented with a concern of wound evaluation as he was being treated for his acute osteomyelitis with antibiotics at the senior care. On presentation the wound looked clean and dry. As he has complained of subjective fever without chills, blood workup including chest x-ray was ordered. The lab result was unremarkable. Patient was advised to go to the senior care for the continuation of antibiotic for osteomyelitis and for the wound care. Patient is discharged back to the senior care. ED Course Orders Procedure Category Date Status Time Cbc With Differential LAB 12/27/24 Complete 14:27 Blood Cult AMIE 12/27/24 In Process 14:27 Urinalysis Profile LAB 12/27/24 Complete 14:27 Culture Urine AMIE 12/27/24 In Process 14:27 Creatine Kinase, Total LAB 12/27/24 Complete 14:27 Troponin I High LAB 12/27/24 Complete Sensitivity 14:27 Lactic Acid LAB 12/27/24 Complete 14: Basic Metabolic Panel LAB 12/27/24 Complete 14:27 12 Lead Ekg Tracing- EKG 12/27/24 Complete Technical 14:27 Chest 1vw RAD 12/27/24 Resulted 14:27 Erythrocyte Sed Rate LAB 12/27/24 Complete 14:40 Vital Signs Date Time Temp Pulse Resp B/P (MAP) Pulse Ox O2 Delivery O2 Flow Rate FiO2 12/27/24 14:39 97.7 81 12 142/89 98 Room Air* 0 21 12/27/24 14:16 97.7 81 16 142/89 98 Room Air 0 DX & DISP Disposition: Discharge Departure Impression: Primary Impression: Right foot infection Additional Impression: Osteomyelitis of ankle or foot, right, acute Critical Time: 30 minutes Condition: Stable Additional Instructions: Who presented to the ED with a wound evaluation of the right foot. On examination the wound looked clean and dry. -You are advised to continue antibiotic at the snf facility. Referrals: VASILIY CLEMENT (PCP) Time of Disposition: 16:33 ATTESTATION BY PHYSICIAN I have seen and examined the patient. I reviewed the documentation, medical decision making, and treatment plan as noted by the resident above. I agree with the findings and plan of care. Livia Handy MD, SUNIL MD Dec 27, 2024 15:31 LIVIA HANDY MD Dec 27, 2024 16:14
[2024-12-27 15:58] LABS: APPEARANCE,URINE CLEAR (CLEAR); GLUCOSE, URINE (UA) NEGATIVE (NEGATIVE); LEUKOCYTE ESTERASE ,URINE NEGATIVE Leu/uL (NEGATIVE); NITRATE,URINE NEGATIVE (NEGATIVE); OCCULT BLOOD,URINE MODERATE (NEGATIVE)
[2024-12-27 16:07] LABS: ADD UA MICROSCOPIC YES
[2024-12-27 16:09] LABS: CALCIUM OXALATE CRYSTALS,UR RARE /LPF (None Seen); HYALINE CASTS, URINE 0-1 /LPF (0-1 /LPF); SQUAMOUS EPITHELIAL CELL,UR RARE /HPF (0-2)
--- NOTE | 2024-12-27 16:10 | HMCIMG ---
CHEST 1VW REASON: sepsis COMPARISON: None. FINDINGS: Single view of the chest was obtained. Lungs are clear. Heart size is normal. There is no pulmonary vascular congestion. Mediastinum and bony thorax appear unremarkable. Clinically screws and rods seen in the lower thoracic upper lumbar spine. IMPRESSION: 1. Unchanged from prior study with no acute cardiopulmonary process..
--- NOTE | 2024-12-27 17:09 | NUR ---
CALLED REPORT TO [facility] AT [phone]. GAVE REPORT KINJAL DINH LVN.
--- NOTE | 2024-12-27 17:14 | NUR ---
[facility] CALLED FOR TRANSPORT TO [facility] AT THIS TIME./ZEINA
--- NOTE | 2024-12-27 18:01 | NUR ---
PT BEING TRANSFERED BY EMS
== END 2024-12-27 18:05 ==
LOC: EDH 14:14
DX: L08.9 Local infection of the skin and subcutaneous tissue, unspecified (principal); M86.171 Other acute osteomyelitis, right ankle and foot; I10 Essential (primary) hypertension; F41.9 Anxiety disorder, unspecified; F32.A Depression, unspecified; K21.9 Gastro-esophageal reflux disease without esophagitis; G82.20 Paraplegia, unspecified; Z88.1 Allergy status to other antibiotic agents; Z79.899 Other long term (current) drug therapy
CPT/HCPCS: 36415; 71045; 80048; 81001; 82550; 83605; 84484; 85025; 85651; 87040; 87086; 93005; 99285

== ENCOUNTER 2025-01-02 22:58 | Emergency (ER) | payer OTHER, MEDICAID ==
[~2025-01-02] VITALS: Ht 182.9 cm; Wt 98.4 kg
--- NOTE | 2025-01-02 23:14 | NUR ---
PT CARE ASSUMED AT THIS TIME
[2025-01-02 23:57] LABS: IMMATURE GRANULOCYTE ABSOLUTE 0.06 K/uL (0-1); NUCLEATED RED BLOOD CELLS 0.0 % (0.0-0.19); PLATELET COUNT (AUTO) 126 K/uL (130-400); RED BLOOD CELL COUNT(AUTO) 4.16 MIL/uL (4.50-6.20); RED CELL DISTRIBUTION WIDTH 14.8 % (11.0-15.5); WHITE BLOOD COUNT (AUTO) 10.7 K/uL (4.8-10.8)
--- NOTE | 2025-01-02 23:57 | NUR ---
BLADDER SCAN PREFORMED AT BEDSIDE ORDERED. 231 MLS FOUND ON BLADDER SCAN. ED MD DRAKE MADE AWARE. PER ED MD CLEARED FOR MARTINEZ INSERTION.
--- NOTE | 2025-01-03 00:04 | ERN ---
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 He stated that his Martinez was accidentally D/C'd and reinserted. When the Martinez was reinserted the caretakers could only put it part way up his urethra. They inflated the balloon and there was an immediate release of blood into the Martinez catheter. His caretakers then removed the Martinez catheter. All of this took place a proximally two days ago. He comes in now because he is constantly wetting his diapers in his urine has blood in it. Allergies: Coded Allergies: vancomycin (Unverified Allergy, Unknown, ITCHING, 03/23/22) Home Meds Active Scripts Sulfamethoxazole/Trimethoprim (Bactrim Ds Tablet) 800 Mg-160 Mg Tablet, 1 TAB PO BID for 7 Days, #14 TAB 0 Refills Prov:LAILA HENDERSON MD 01/03/25 Reported Medications Amitriptyline HCl (Amitriptyline HCl) 25 Mg Tablet, 25 MG PO HS, #2 TAB 05/22/17 Past Medical History Past Medical History: Anxiety, Depression, GERD, Hypertension, Other Medical History Other: PARAPLEGIA, NEUROMUSCULAR DYSFUNCTION OF BALDDER, T 12 SPINAL INJURY Past Surgical History: None Surgical History Other: BACK SX Family History Family History: Negative Social History Social History: Negative, Lives with family Constitutional: (-) chills, (-) diaphoresis, (-) fever, (-) malaise, (-) weakness, (-) other documentation EENTM: (-) eye pain, (-) blurred vision, (-) tearing, (-) double vision, (-) ear pain, (-) ear discharge, (-) nose pain, (-) nose congestion, (-) throat pain, (-) Throat swelling, (-) mouth pain, (-) tooth pain, (-) mouth swelling, (-) other documentation Respiratory: (-) cough, (-) orthopnea, (-) short of breath, (-) stridor, (-) wheezing, (-) other documentation Cardiovascular: (-) chest pain, (-) edema, (-) palpitations, (-) syncope, (-) dyspnea on exertion, (-) other documentation Gastrointestinal/Abdominal: (-) nausea, (-) vomiting, (-) diarrhea, (-) abdominal pain, (-) abdominal distention, (-) constipation, (-) rectal bleeding, (-) dark stool/melena, (-) other documentation Genitourinary: (+) dysuria, (+) hematuria Physical Exam General Appearance: (+) no apparent distress Orientation: (+) alert, (+) oriented x 3 Head/Face Trauma: No Eye: bilateral eye normal inspection, bilateral eye PERRL, bilateral eye EOMI Ear, Nose, Throat: (+) hearing grossly normal, (+) normal ENT inspection, (+) moist mucous membraine Neck: (+) normal inspection, (+) supple, (+) full range of motion, (+) no JVD Respiratory: (+) chest non-tender, (+) lungs clear, (+) well ventilated Heart: (+) regular, (+) no gallop Vascular: (+) no edema, (+) normal peripheral pulse Gastrointestinal: (+) soft, (+) non-tender, (+) bowel sound present Results Laboratory and Microbiology Lab and Micro Result Laboratory Tests Test 01/02/25 23:51 01/03/25 00:26 White Blood Count 10.7 K/uL (4.8-10.8) Red Blood Count 4.16 MIL/uL (4.50-6.20) L Hemoglobin 11.7 g/dL (14.0-18.0) L Hematocrit 36.3 % (42-54) L Mean Corpuscular Volume 87.3 fL (79-99) Mean Corpuscular Hemoglobin 28.1 pg (27.0-33.0) Mean Corpuscular Hemoglobin Concent 32.2 g/dL (32.0-36.0) Red Cell Distribution Width 14.8 % (11.0-15.5) Platelet Count 126 K/uL (130-400) L Mean Platelet Volume 9.0 fL (7.5-10.5) Immature Granulocyte % (Auto) 0.6 % (0-1) Neutrophils (%) (Auto) 91.2 % (40.0-77.0) H Lymphocytes (%) (Auto) 4.0 % (21.0-51.0) L Monocytes (%) (Auto) 3.3 % (3.0-13.0) Eosinophils (%) (Auto) 0.7 % (0.0-8.0) Basophils (%) (Auto) 0.2 % (0.0-5.0) Neutrophils # (Auto) 9.8 K/uL (1.8-7.7) H Lymphocytes # (Auto) 0.4 K/uL (1.0-4.8) L Monocytes # (Auto) 0.4 K/uL (0.1-1.0) Eosinophils # (Auto) 0.08 K/uL (0.00-0.70) Basophils # (Auto) 0.02 K/uL (0.00-0.20) Absolute Immature Granulocyte (auto 0.06 K/uL (0-1) Nucleated Red Blood Cells 0.0 % (0.0-0.19) White Cell Morphology Comment CONSISTENT W/DIFF Sodium Level 141 mmol/L (136-145) Potassium Level 3.8 mmol/L (3.5-5.1) Chloride Level 104 mmol/L (101-111) Carbon Dioxide Level 29 mmol/L (21-32) Blood Urea Nitrogen 19 mg/dL (7-18) H Creatinine 1.0 mg/dL (0.5-1.3) Glomerular Filtration Rate Calc 95 mL/min (>90) Random Glucose 131 mg/dL (70-105) H Total Calcium 8.3 mg/dL (8.5-10.1) L Urine Color LIGHT-ORANGE (YELLOW) Urine Appearance TURBID (CLEAR) Urine pH 6.5 (5.0-8.0) Urine Specific [place] 1.008 (1.001-1.031) Urine Protein 30 mg/dL (NEGATIVE) H Urine Glucose (UA) NEGATIVE mg/dL (NEGATIVE) Urine Ketones NEGATIVE mg/dL (NEGATIVE) Urine Occult Blood MODERATE (NEGATIVE) H Urine Nitrate NEGATIVE (NEGATIVE) Urine Bilirubin NEGATIVE mg/dL (NEGATIVE) Urine Urobilinogen 0.2 mg/dL (0.2-1.0) Urine Leukocyte Esterase 500 Basilio/uL (NEGATIVE) H Urine RBC 26-50 /HPF (0-1) H Urine WBC TNTC /HPF (0-1) H Urine WBC Clumps (Auto) MANY /HPF (0-1) Urine Bacteria MOD /HPF (None Seen) MDM Patient had a Martinez catheter that was removed traumatically. A reinsertion caused hematuria. I think the Martinez balloon was inflated at the prostatic urethra causing the patient's current symptoms. Her bladder scan showed 260 cc of urine. We will insert a new catheter. She will get a CBC chemistry panel and a UA to rule out infection and prostatitis. Patient's laboratory study shows normal CBC. UA is positive for bacteria and leukocyte esterase activity as well as blood. Patient did have a urine culture 12/27/2024 which was negative for growth therefore I am assuming this is a new urinary tract infection and not colonization from a chronic Martinez. Discharge the patient on Bactrim. ED Course Orders Procedure Category Date Status Time Bladder Scan CPOE 01/02/25 Transmitted 23:28 Nurse Driven Martinez DAVID 01/02/25 In Process Removal Pro 23:36 Cbc With Differential LAB 01/02/25 Complete 23:36 Urinalysis Profile LAB 01/02/25 Complete 23:36 Basic Metabolic Panel LAB 01/02/25 Complete 23:36 Culture Urine AMIE 01/03/25 In Process 00:38 Vital Signs Date Time Temp Pulse Resp B/P (MAP) Pulse Ox O2 Delivery O2 Flow Rate FiO2 01/02/25 23:20 98.1 97 16 102/73 96 Room Air* 0 21 01/02/25 22:58 98.1 88 16 114/72 98 Room Air 0 DX & DISP Disposition: Discharge Departure Impression: Primary Impression: UTI (urinary tract infection) Condition: Stable Scripts Sulfamethoxazole/Trimethoprim (Bactrim Ds Tablet) 800 Mg-160 Mg Tablet 1 TAB PO BID for 7 Days, #14 TAB 0 Refills Prov: LAILA HENDERSON MD 01/03/25 Additional Instructions: You came in because of urinary obstruction/bladder dysfunction from your T12 injury. We have reinserted a Martinez catheter and the urine analysis shows blood as well as bacteria. I have given you antibiotics for the urinary tract infection. You should start to feel better in the next day or two. Please follow-up with your primary care physician or come back to the emergency room if you start having fevers chills low blood pressure or signs of worsening infection. Referrals: VASILIY CLEMENT (PCP) LAILA HENDERSON MD Jan 03, 2025 00:04
[2025-01-03 00:15] LABS: CREATININE 1.0 mg/dL (0.5-1.3); GLOMERULAR FILTR. RATE CALC 95.0 mL/min (>90); GLUCOSE,RANDOM 131.0 mg/dL (70-105); SODIUM SERUM 141.0 mmol/L (136-145); UREA NITROGEN, BLOOD 19.0 mg/dL (7-18)
[2025-01-03 00:33] LABS: APPEARANCE,URINE TURBID (CLEAR); GLUCOSE, URINE (UA) NEGATIVE (NEGATIVE); LEUKOCYTE ESTERASE ,URINE 500 Leu/uL (NEGATIVE); NITRATE,URINE NEGATIVE (NEGATIVE); OCCULT BLOOD,URINE MODERATE (NEGATIVE)
[2025-01-03 00:38] LABS: ADD UA MICROSCOPIC YES
[2025-01-03 00:40] LABS: WBC CLUMP MANY /HPF (0-1)
[2025-01-03 00:42] LABS: WBC MORPHOLOGY CONSISTENT W/DIFF
[2025-01-03] MEDS ORDERED: SULF1TAB42 PO (00:52)
--- NOTE | 2025-01-03 02:13 | NUR ---
UPDATE GIVEN TO JUNIOR AT [facility]. JUNIOR MADE AWARE OF PT BEING DISCHARGED AND PENDING TRANSPORT.
--- NOTE | 2025-01-03 02:26 | NUR ---
[facility] ARRIVED FOR PT TO TRANSPORT PT BACK TO [facility].
[2025-01-03 02:29] VITALS: BP 134/81; PULSE 87; RESP 15; TEMP 98.1; O2SAT 96
== END 2025-01-03 02:32 | disposition home or self-care (01) ==
LOC: EDH 22:58
DX: N39.0 Urinary tract infection, site not specified (principal); F32.A Depression, unspecified; F41.9 Anxiety disorder, unspecified; I10 Essential (primary) hypertension; Z88.1 Allergy status to other antibiotic agents; Z79.899 Other long term (current) drug therapy
CPT/HCPCS: 36415; 51702; 80048; 81001; 85025; 87086; 87186; 99284